=== PATIENT | female | born 1960 | race Caucasian/White ===

== ENCOUNTER 2017-04-13 07:28 | Inpatient (IN) | payer MEDICARE, OTHER ==
--- NOTE | 2017-04-13 07:52 | ED Physician Documentation ---
PD HPI DYSPNEA - Stated complaint Stated Complaint: SOA - Chief complaint Chief Complaint: Resp - History obtained from History obtained from: Patient - History of Present Illness Timing - onset: How many days ago (few) Timing - onset during: Light activity Timing - duration: Days Timing - details: Gradual onset, Still present Inciting event(s): URI (has had some congestion and cough, increased wheezing and cough. Visiting from [place] and uses nebulizer/MDIs at home, oxygen 2 lpm at night. Has portable nebulizer with her that does not work well. Has not had night oxygen with her. Arrived few days ago and will be here 2 weeks. Having diffuse myalgias as well, and usually takes Vicodin 3-4 times daily. Does have those meds with her. No oral steroids usually.). No: Out of meds Improved by: No: Inhaler/neb Worsened by: Exertion, Coughing. No: Laying flat Associated symptoms: Cough, Wheezing. No: Hemoptysis, Chest pain / discomfort, Palpitations, Bilateral edema Similar symptoms before: Diagnosis (COPD/asthma, bronchitis/pneumonia.) Recently seen: Not recently seen Review of Systems Constitutional: reports: Chills, Myalgias. denies: Fever Ears: denies: Drainage/discharge Nose: reports: Congestion. denies: Sinus pressure / pain Throat: denies: Sore throat Cardiac: denies: Chest pain / pressure, Palpitations, Pedal edema, Calf pain Respiratory: reports: Dyspnea, Cough, Wheezing. denies: Hemoptysis GI: reports: Nausea. denies: Abdominal Pain, Vomiting, Diarrhea : denies: Dysuria, Frequency Skin: denies: Rash, Lesions Neurologic: reports: Generalized weakness. 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 Cardiovascular: Coronary stent - Present Medications Home Medications: Ambulatory Orders Medication Instructions Recorded Confirmed Albuterol Sulfate [Proair Hfa 1 puffs INH Q6H 04/13/17 04/13/17 Inhaler] Aspirin Chewable [St Bob 81 mg PO DAILY 04/13/17 04/13/17 Aspirin] Budesonide/Formoterol Fumarate 1 puffs INH BID 04/13/17 04/13/17 [Symbicort 160-4.5 Mcg Inhaler] Gabapentin 800 mg PO TID 04/13/17 04/13/17 Hydroxyzine HCl 50 mg PO Q6H PRN 04/13/17 04/13/17 Losartan Potassium 25 mg PO DAILY 04/13/17 04/13/17 Metoprolol Tartrate 50 mg PO DAILY 04/13/17 04/13/17 Omeprazole 20 mg PO DAILY 04/13/17 04/13/17 Rosuvastatin Calcium [Crestor] 20 mg PO DAILY 04/13/17 04/13/17 - Allergies Allergies/Adverse Reactions: Allergies Allergy/AdvReac Type Severity Reaction Status Date / Time ranitidine Allergy Edema Verified 04/13/17 07:39 - Social History Does the pt smoke?: Yes Smoking Status: Current every day smoker Does the pt drink ETOH?: No Does the pt have substance abuse?: No - Family History Family history: reports: Non contributory. denies: Venous thromboembolism PD ED PE NORMAL - Vitals Vital signs reviewed: Yes - General General: Alert and oriented X 3, No acute distress (some work of breathing, but able to talk in sentences. ), Well developed/nourished - HEENT HEENT: Ears normal, Pharynx benign - Neck Neck: Supple, no meningeal sign, No adenopathy, No JVD - Cardiac Cardiac: RRR, No murmur - Respiratory Respiratory: No: Clear bilaterally (diffuse wheezing and tight resp sounds. ) - Abdomen Abdomen: Soft, Non tender, Non distended - Back Back: No CVA TTP - Derm Derm: Normal color, Warm and dry - Extremities Extremities: No deformity, No tenderness to palpate, Normal ROM s pain, No edema , No calf tenderness / cord - Neuro Neuro: Alert and oriented X 3, No motor deficit, Normal speech - Psych Psych: Normal mood, Normal affect Results - Vitals Vitals: Vital Signs - 24 hr 04/13/17 04/13/17 04/13/17 07:36 08:05 08:15 Temperature 35.7 C L Heart Rate 84 87 80 Respiratory 26 H 20 24 Rate Blood Pressure 113/79 O2 Saturation 84 L 93 04/13/17 04/13/17 04/13/17 08:20 09:20 09:50 Temperature Heart Rate 81 89 83 Respiratory 20 26 H 20 Rate Blood Pressure 104/52 L O2 Saturation 100 04/13/17 04/13/17 04/13/17 10:19 10:22 11:07 Temperature Heart Rate 83 80 80 Respiratory 22 22 22 Rate Blood Pressure 95/62 91/49 L O2 Saturation 92 87 L 87 L 04/13/17 04/13/17 04/13/17 11:17 11:35 11:45 Temperature Heart Rate 73 64 73 Respiratory 20 17 18 Rate Blood Pressure 93/54 L 94/46 L 94/46 L O2 Saturation 91 L 90 L 93 Oxygen O2 Source Nasal cannula Oxygen Flow Rate 2 - Labs Labs: Laboratory Tests 04/13/17 04/13/17 11:22 11:22 WBC 11.5 H RBC 4.75 Hgb 14.4 Hct 42.1 MCV 88.6 MCH 30.2 MCHC 34.1 RDW 13.7 Plt Count 114 L MPV 10.8 Neut # 10.8 H Lymph # 0.5 L Collier # 0.2 Eos # 0.0 Baso # 0.0 Absolute Nucleated RBC 0.00 Nucleated RBCs 0.0 Sodium 136 Potassium 3.7 Chloride 96 L Carbon Dioxide 28 Anion Gap 12.0 BUN 18 Creatinine 1.1 H Estimated GFR (MDRD) 51 L Glucose 117 H Calcium 8.6 Magnesium 1.9 Total Bilirubin 0.5 AST 35 ALT 24 Alkaline Phosphatase 58 Total Protein 7.3 Albumin 3.7 Globulin 3.6 Albumin/Globulin Ratio 1.0 PD MEDICAL DECISION MAKING - ED course Complexity details: reviewed results, re-evaluated patient (improved some with nebs but not well enough. still with some dyspnea, wheezing, and sats to 88% on RA. ), considered differential (She improves with sequential neb treatments but is still having some work of breathing and wheezing, with sats at 88% without oxygen. Presume will need time for steroids (and abx) to have effect so to place in hospital for further treatments. Given history of COPD/asthma, would treat with abx for exacerbation as higher chance of infection too. ), d/w patient Departure - Departure Disposition: [facility] DC/Xfer Clinical Impression: Acute exacerbation of COPD with asthma, Acute dyspnea, Hypoxemia URI (upper respiratory infection) Qualifiers: URI type: unspecified URI Qualified Code(s): J06.9 - Acute upper respiratory infection, unspecified Discharge Date/Time: 04/13/17 12:44
[2017-04-13] MEDS ORDERED: IPRATROPIUM/ALBUTEROL 3 ML NEB INH STA ×2 (08:02→09:29)
[2017-04-13] MEDS ORDERED: DEXAMETHASONE 10 MG/ML VIAL PO STA (08:02)
[2017-04-13] MEDS ORDERED: DOXYCYCLINE 100 MG TABLET PO STA (08:03)
[2017-04-13] MEDS ORDERED: BENZONATATE 100 MG CAPSULE PO STA (08:03)
[2017-04-13] MEDS ORDERED: IPRATROPIUM/ALBUTEROL 3 ML NEB INH ONE ×2 (08:15→09:59)
[2017-04-13] MEDS ORDERED: DEXAMETHASONE 10 MG/ML VIAL ONE (08:20)
[2017-04-13] MEDS: ALBUTEROL NEB 2.5 MG/3 ML INH STA ×2 (08:20→08:25)
[2017-04-13] MEDS ORDERED: DOXYCYCLINE 100 MG TABLET PO ONE (08:20)
[2017-04-13] MEDS ORDERED: BENZONATATE 100 MG CAPSULE PO ONE (08:20)
[2017-04-13] MEDS ORDERED: CHERRY SYRUP 10 ML UDC PO ONE (08:21)
[2017-04-13] MEDS ORDERED: ALBUTEROL NEB 2.5 MG/3 ML INH ONE ×2 (08:24→12:13)
[2017-04-13] MEDS ORDERED: ALBUTEROL NEB 2.5 MG/3 ML INH STA ×2 (08:29→11:59)
[2017-04-13] MEDS ORDERED: ONDANSETRON ODT 4 MG TABLET TL STA (09:01)
[2017-04-13] MEDS ORDERED: HYDROcod/ACETAM 5/325 MG TABLET PO STA (09:01)
[2017-04-13] MEDS ORDERED: HYDROmorphone 1 MG/ML CARPUJECT IM STA (09:29)
[2017-04-13] MEDS ORDERED: HYDROcod/ACETAM 5/325 MG TABLET ONE (09:46)
[2017-04-13] MEDS ORDERED: HYDROmorphone 1 MG/ML CARPUJECT ONE (09:46)
[2017-04-13] MEDS ORDERED: ONDANSETRON ODT 4 MG TABLET ONE (09:46)
--- NOTE | 2017-04-13 10:56 | XRAY Preliminary Report ---
Exam: XR Chest 2 View PA/LAT IMPRESSION: No acute abnormality of the chest. [facility] SITE ID: [id number]
--- NOTE | 2017-04-13 10:58 | XRAY Report ---
EXAM: CHEST RADIOGRAPHY EXAM DATE: 04/13/2017 10:36 AM. CLINICAL HISTORY: Cough and dyspnea. COMPARISON: None. TECHNIQUE: 2 views. FINDINGS: Lungs/Pleura: No acute infiltrate, pleural effusion or pneumothorax. 3 mm lateral left lower hemithor ax nodule is dense and consistent with a calcified granuloma. Mediastinum: Heart and mediastinal contours are unremarkable. Other: None. IMPRESSION: No acute abnormality of the chest. [facility] Referring Provider Line: [phone] SITE ID: [id number]
[2017-04-13] MEDS ORDERED: SODIUM CHLORIDE 0.9% 1,000 ML IV ONE ×2 (11:15→11:27)
[2017-04-13 11:28] LABS: BASOPHILS % (AUTO) 0.3 %; HCT - HEMATOCRIT 42.1 % (37.0-47.0); HGB - HEMOGLOBIN 14.4 g/dL (12.0-16.0); LYMPHOCYTES # (AUTO) 0.5 10^3/uL (1.5-3.5); LYMPHOCYTES % (AUTO) 4.2 %; MEAN CORPUSCULAR HEMOGLOBIN 30.2 pg (27.0-31.0); MEAN CORPUSCULAR HGB CONC 34.1 g/dL (32.0-36.0); MEAN CORPUSCULAR VOLUME 88.6 fL (81.0-99.0); MEAN PLATELET VOLUME 10.8 fL (7.9-10.8); MONOCYTES # (AUTO) 0.2 10^3/uL (0.0-1.0); MONOCYTES % (AUTO) 2.1 %; NEUTROPHILS # (AUTO) 10.8 10^3/uL (1.5-6.6); NEUTROPHILS % (AUTO) 93.4 %; RED BLOOD COUNT 4.75 10^6/uL (4.20-5.40); RED CELL DISTRIBUTION WIDTH 13.7 % (12.0-15.0); UNCORRECTED WHITE BLOOD COUNT 11.5 x10^3/uL; WHITE BLOOD COUNT 11.5 x10^3/uL (4.8-10.8)
[2017-04-13 11:41] LABS: BILIRUBIN,TOTAL 0.5 mg/dL (0.2-1.0); CALCIUM 8.6 mg/dL (8.5-10.3); CREATININE 1.1 mg/dL (0.4-1.0); MAGNESIUM 1.9 mg/dL (1.7-2.8); POTASSIUM 3.7 mmol/L (3.5-5.0); TOTAL PROTEIN 7.3 g/dL (6.7-8.2)
[2017-04-13] MEDS ORDERED: SODIUM CHLORIDE FLUSH 0.9% 10 ML SYRINGE IVP ONE (11:44)
[2017-04-13] MEDS ORDERED: ZOLPIDEM 5 MG TABLET PO PRN (12:02)
[2017-04-13] MEDS ORDERED: ACETAMINOPHEN 325 MG TABLET PO PRN (12:02)
[2017-04-13] MEDS ORDERED: ONDANSETRON 4 MG/2 ML VIAL IVP PRN (12:02)
[2017-04-13] MEDS ORDERED: hydrOXYzine PAMOATE 25 MG CAPSULE PO PRN ×2 (12:13→12:29)
[2017-04-13] MEDS: AZITHROMYCIN 250 MG TABLET PO SCH (12:25)
[2017-04-13] MEDS ORDERED: AZITHROMYCIN 250 MG TABLET PO ONE (12:28)
[2017-04-13] MEDS ORDERED: SODIUM CHLORIDE 0.9% 1,000 ML IV SCH (13:00)
[2017-04-13] MEDS: GABAPENTIN 400 MG CAPSULE PO SCH ×2 (13:12→22:25)
[2017-04-13] MEDS: AMITRIPTYLINE 25 MG TABLET PO SCH (13:12)
[2017-04-13] MEDS: SODIUM CHLORIDE FLUSH 0.9% 10 ML SYRINGE IVP SCH ×2 (13:12→22:25)
[2017-04-13] MEDS: ASPIRIN CHEW 81 MG TABLET PO SCH (13:12)
[2017-04-13] MEDS: FAMOTIDINE 20 MG TABLET PO SCH (13:12)
--- NOTE | 2017-04-13 13:16 | CT Preliminary Report ---
Exam: CT Chest Angio (PE) IMPRESSION: 1. No evidence of pulmonary embolus, aortic aneurysm or aortic dissection. 2. Mild bilateral bronchial thickening which can be seen with bronchitis with several foci of groundg lass airspace opacity, as described, findings which are likely infectious/inflammatory etiology. No a reas of dense consolidation. 3. Mildly prominent although subcentimeter mediastinal and bilateral hilar lymph nodes. 4. Prior granulomatous disease. [facility] SITE ID: [id number]
[2017-04-13] MEDS: methylPREDNISolone SUCCINATE 40 MG/ML VIAL IVP SCH ×2 (14:02→22:25)
--- NOTE | 2017-04-13 14:20 | CT Report ---
EXAM: CT ANGIOGRAM CHEST EXAM DATE: 04/13/2017 12:31 p.m. CLINICAL HISTORY: Shortness of breath, hypotensive, hypoxia. COMPARISON: 04/13/2017. TECHNIQUE: Routine helical imaging was performed through the chest in the pulmonary arterial phase. I V Contrast: 100 mL of Isovue-300. Reconstructions: Coronal 3-D MIP reconstructions.Sagittal and coron al. In accordance with CT protocol optimization, one or more of the following dose reduction techniques w ere utilized for this exam: automated exposure control, adjustment of mA and/or KV based on patient s ize, or use of iterative reconstructive technique. FINDINGS: Pulmonary Arteries: Diagnostic quality: Adequate through the segmental arteries. No evidence for acute or chronic pulmona ry emboli. RV/LV is within normal limits. There is no interventricular septal bowing. There is no reflux of cont rast material in the IVC. Lungs/Pleura: Minimal basilar scar/atelectasis. Left lower lobe and right upper lobe calcified granul omas. No endobronchial obstruction. No pneumothorax. Mild bronchial thickening. No areas of dense con solidation. Small foci of ground-glass opacity is seen in the right middle lobe and lingula, with a s mall component in the right lower lobe. Mild bilateral bronchial dilatation, mucus/fluid is present w ithin peripheral bronchi, in the lower lobes. Mediastinum: Heart size is normal. Trace pericardial effusion. Visualized thyroid gland is unremarkab le. Mediastinal and hilar lymph nodes are seen, the largest right paratracheal lymph node seen measur ing 7.5 mm in short axis dimension with mildly prominent bilateral hilar lymph nodes, the largest on the right measuring 9 mm in short axis dimension. No mediastinal hematoma. Thoracic Aorta: Maximum size of ascending aorta measures 2.9 cm.Calcified and noncalcified plaque is seen in the thoracic aorta and great vessels, particularly the left common carotid artery. No dissect ion. No aneurysm. Upper Abdomen: Included portions of the liver, spleen, adrenals, pancreas, and gallbladder are unrema rkable. Upper pole left renal low-attenuation lesion is seen. 8 mm, indeterminate. Other: Mild degenerative changes of the thoracic spine. No acute osseous abnormalities. IMPRESSION: 1. No evidence of pulmonary embolus, aortic aneurysm or aortic dissection. 2. Mild bilateral bronchial thickening which can be seen with bronchitis with several foci of ground- glass airspace opacity, as described, findings which are likely infectious/inflammatory in etiology. No areas of dense consolidation. 3. Mildly prominent, although subcentimeter mediastinal and bilateral hilar lymph nodes. 4. Prior granulomatous disease. [facility] Referring Provider Line: [phone] SITE ID: [id number]
[2017-04-13] MEDS ORDERED: ALBUTEROL NEB 2.5 MG/3 ML INH SCH ×2 (14:45→18:36)
--- NOTE | 2017-04-13 17:34 | HISTORY & PHYSICAL EXAMINATION ---
Chief Complaint - Chief Complaint Chief Complaint: shortness of breathing History of Present Illness - Admitted From Admitted From:: emergence department - History Obtained From History obtained from: patient - History of Present Illness HPI Comment/Other: This is a 56-year-old Cauc[place] female with a past medical history significant for COPD, current cigarette smoker, HTN, hyperlipidemia, CAD with cardiac stent , PVD, who present emergence department for evaluation of shortness of breath. Patient report she has been on difficult to breath for three days. She had cold , fever at 101 to 102 degree, chill and night sweating at home. patient report she recently traveled from [place] to visit her boyfriend in [facility] for 5 days. She report she currently smokes cigarette 3/4 pack per daily. She used O2 for the night at home. She also report cough with white and slight yellowish sputum. patient report she did not have sleep on last night because of shortness of breathing. Patient denies chest pain, headache, abdominal, nausea, vomiting, abdominal, urinary issue or vision changing. Patient was found hypotensive 91/49 and hypoxia 86% with 3 liter O2 in Emergence department. CTA of chest reveals she did not have PE, bronchitis with infectious etiology, prior granulomatous disease. Lab test reveal slight elevated WBC and creatinine. Pt is admitted for hypoxia secondary to COPD exacerbation. Review of Systems - Constitutional Constitutional: reports: Fever, Chills, Diaphoresis, Night sweats. denies: Fatigue, Weakness, Poor appetite, Weight gain, Weight loss - Eyes Eyes: denies: Pain, Irritation, Amaurosis, Blurred vision, Spots in vision, Field loss, Vision loss, Dipolpia - Ears, Nose & Throat Ears, Nose & Throat: denies: Ear pain, Hearing loss, Hearing aids, Tinnitus, Vertigo, Nosebleeds, Sore throat, Hoarseness, Mouth lesions, Bleeding gums - Cardiovascular Cariovascular: reports: Lightheadedness. denies: Irregular heart rate, Palpitations, Chest pain, Edema, Syncope, Exertional dyspnea - Respiratory Respiratory: reports: Cough, Sputum production, Wheezing, SOB with exertion. denies: Snoring, Hemoptysis, Orthopnea, SOB at rest - Gastrointestinal Gastrointestinal: reports: Diarrhea. denies: Abdominal pain, Abdominal distention, Constipation, Change in bowel habits, Rectal bleeding, Black stools , Bloody stools, Nausea, Vomiting, Saurav blood emesis, Coffee grounds emesis, Reflux/heartburn, Poor appetite - Genitourinary Genitourinary: denies: Dysuria, Frequency, Urgency, Hematuria, Incontinence, Flank pain, Nocturia - Musculoskeletal Musculoskeletal: denies: Muscle pain, Back pain, Muscle aches, Stiffness, Limited range of motion, Muscle weakness, Gout, Joint swelling - Integumentary Integumentary: denies: Rash, Pruritis, Lesions, Dryness, Pigment changes - Neurological Neurological: denies: General weakness, Focal weakness, Headache, Dizziness, Numbness, Memory problems, Pre-existing deficit, Abnormal gait, Seizures, Incoordination, Slurred speech - Psychiatric Psychiatric: denies: Depression, Anxiety, Suicidal, Delusions, Hallucinations, Homicidal - Endocrine Endocrine: denies: Polyuria, Polydypsia, Polyphagia - Hematologic/Lymphatic Hematologic/Lymphatic: denies: Anemia, Bruising, Petechiae, Blood clots, Lymphadenopathy, Bleeding tendencies, Recurrent infections History - Past Medical History Cardiovascular: reports: Hypertension, High cholesterol, Coronary artery disease , Peripheral Vascular Disease Respiratory: reports: COPD MRSA Hx?: No - 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 She had 3 children, one at [facility], two at [place]. Living arrangement: At home Living Situation: With family - Substance History Use: Uses substance without health or social issues: Tobacco Abuse: Recurrent use of substance despite neg consequences: NONE Dependence: Experiences withdrawal or developed tolerances: Tobacco - POLST Patient has POLST: No POLST Status: Full Code Meds/Allgy - Home Medications Home Medications: Ambulatory Orders Medication Instructions Recorded Confirmed Albuterol Sulfate [Proair Hfa 1 puffs INH Q6H 04/13/17 04/13/17 Inhaler] Aspirin Chewable [St Bob 81 mg PO DAILY 04/13/17 04/13/17 Aspirin] Budesonide/Formoterol Fumarate 1 puffs INH BID 04/13/17 04/13/17 [Symbicort 160-4.5 Mcg Inhaler] Gabapentin 800 mg PO TID 04/13/17 04/13/17 Hydroxyzine HCl 50 mg PO Q6H PRN 04/13/17 04/13/17 Losartan Potassium 25 mg PO DAILY 04/13/17 04/13/17 Metoprolol Tartrate 50 mg PO DAILY 04/13/17 04/13/17 Omeprazole 20 mg PO DAILY 04/13/17 04/13/17 Rosuvastatin Calcium [Crestor] 20 mg PO DAILY 04/13/17 04/13/17 - Allergies Allergies/Adverse Reactions: Allergies Allergy/AdvReac Type Severity Reaction Status Date / Time ranitidine Allergy Edema Verified 04/13/17 07:39 Exam - Vital Signs Reviewed Vital Signs: Yes Vital Signs: Vital Signs x48h Temp Pulse Pulse Resp BP BP Pulse Ox 04/13/17 16:29 36.5 C 58 L 17 116/61 96 04/13/17 13:56 36.7 C 77 18 112/63 97 04/13/17 12:30 68 18 04/13/17 12:29 64 20 105/57 L 96 - Physical Exam General Appearance: positive: No acute distress, Alert. negative: Lethargic Eyes Bilateral: positive: Normal inspection, PERRL, EOMI, No lid inflammation, Conjunctivae nml ENT: positive: ENT inspection nml, Pharynx nml, No signs of dehydration. negative: Purulent nasal drainage, Pharyngeal erythema, Oral lesions Neck: positive: Nml inspection, Thyroid nml, No JVD, Trachea midline. negative : Thyromegaly, Lymphadenopathy (R), Lymphadenopathy (L), Stiff neck, Swelling/ bruising, Tracheal deviation Respiratory: positive: Chest non-tender, No respiratory distress, Wheezes ( right lung more intensive wheezes than left lung) Cardiovascular: positive: Regular rate & rhythm, No murmur, No gallop. negative : Tachycardia, Bradycardia, Systolic murmur, Diastolic murmur Peripheral Pulses: positive: 2+ Abdomen: positive: Non-tender, No organomegaly, Nml bowel sounds, No distention. negative: Tenderness, Guarding, Rebound Back: positive: Nml inspection. negative: CVA tenderness (R), CVA tenderness (L ) Skin: positive: Color nml, No rash, Warm, Dry. negative: Cyanosis, Pallor, Skin rash Extremities: positive: Non-tender, Full ROM, Nml appearance. negative: Pedal edema, Calf tenderness, Keith's sign/cords Neurologic/Psychiatric: positive: Oriented x3, Motor nml, Sensation nml, Mood/ affect nml. negative: Weakness, Sensory loss, Facial droop, Slurred/abnml speech, Depressed mood/affect Conclusion/Plan - Problem List (1) Acute exacerbation of COPD with asthma Conclusion/Plan: pt with hx of COPD, current smoker, recent travel. O2 dependence at night solu-medro duoneb, albuterol O2 PRN, RT consult monitor with vital, tele (2) Hypotension Conclusion/Plan: pt is with hx of hypertension, but found pt had lower BP at ER, dehydration may contribute. Pt is no fever in ER, slight elevated WBC. Pt's blood pressure is very response to hydration hold home BP meds now hydration with iVF closely monitor vital and tele (3) Hypoxemia Conclusion/Plan: it appears secondary to COPD exacerbation. Now it 96% SO2 with O2 NS O2 PRN, breathing treatment, Rt consult closely monitor with vital (4) Fever and chills Conclusion/Plan: pt state she had fever/chill, SOB at home. slight elevated WBC, pt may present virus/bacterial bronchitis PO Azithyromycin follow up daily lab test, vital monitor (5) HTN (hypertension) Conclusion/Plan: will resume home meds as needed. pt's BP is stable now after hydration with iVF (6) CAD (coronary artery disease) Conclusion/Plan: history of CAD with cardiac stent. stable, resume home meds, tele monitor, vital monitor (7) DVT prophylaxis Conclusion/Plan: SCD with lovenox - Lab Results Fish Bones: 04/13/17 11:22 04/13/17 11:22 Issues/Core Measures - Anticipated LOS Anticipated Stay Length: 2 or more midnights - DVT/VTE - Prophylaxis VTE/DVT Device ordered at admit?: Yes
[2017-04-13] MEDS: SODIUM CHLORIDE 0.9% 1,000 ML IV SCH (18:33)
[2017-04-13] MEDS: ALBUTEROL NEB 2.5 MG/3 ML INH SCH (19:30)
[2017-04-13] MEDS: guaiFENesin 600 MG TABLET PO PRN (20:29)
[2017-04-13] MEDS: IPRATROPIUM/ALBUTEROL 3 ML NEB INH PRN ×2 (22:55→22:56)
[2017-04-14] MEDS: ALBUTEROL NEB 2.5 MG/3 ML INH SCH ×4 (01:00→19:59)
[2017-04-14] MEDS: SODIUM CHLORIDE 0.9% 1,000 ML IV SCH (02:41)
[2017-04-14] MEDS: IPRATROPIUM/ALBUTEROL 3 ML NEB INH PRN (05:10)
[2017-04-14] MEDS: guaiFENesin 600 MG TABLET PO PRN ×2 (05:15→22:00)
[2017-04-14] MEDS: GABAPENTIN 400 MG CAPSULE PO SCH ×3 (05:15→21:36)
[2017-04-14] MEDS: SODIUM CHLORIDE FLUSH 0.9% 10 ML SYRINGE IVP SCH ×3 (05:16→20:16)
[2017-04-14 05:37] LABS: ALBUMIN/GLOBULIN RATIO 0.9 (1.0-2.2); BILIRUBIN,TOTAL 0.2 mg/dL (0.2-1.0); CALCIUM 8.1 mg/dL (8.5-10.3); POTASSIUM 3.4 mmol/L (3.5-5.0)
[2017-04-14 05:45] LABS: BASOPHILS % (AUTO) 0.2 %; HGB - HEMOGLOBIN 14.7 g/dL (12.0-16.0); LYMPHOCYTES % (AUTO) 10.6 %; MEAN CORPUSCULAR HEMOGLOBIN 30.3 pg (27.0-31.0); MEAN CORPUSCULAR HGB CONC 33.5 g/dL (32.0-36.0); MEAN CORPUSCULAR VOLUME 90.4 fL (81.0-99.0); MEAN PLATELET VOLUME 10.3 fL (7.9-10.8); MONOCYTES # (AUTO) 0.5 10^3/uL (0.0-1.0); NEUTROPHILS # (AUTO) 7.9 10^3/uL (1.5-6.6); NEUTROPHILS % (AUTO) 84.2 %; RED BLOOD COUNT 4.87 10^6/uL (4.20-5.40); RED CELL DISTRIBUTION WIDTH 13.9 % (12.0-15.0); UNCORRECTED WHITE BLOOD COUNT 9.3 x10^3/uL; WHITE BLOOD COUNT 9.3 x10^3/uL (4.8-10.8)
[2017-04-14 06:08] LABS: PLATELET MORPHOLOGY 1+ GIANT PLATELETS (NORMAL)
[2017-04-14 06:09] LABS: PLATELET ESTIMATE, MANUAL DECREASED (<130,000) (NORMAL)
[2017-04-14] MEDS: methylPREDNISolone SUCCINATE 40 MG/ML VIAL IVP SCH ×2 (08:41→20:16)
[2017-04-14] MEDS: ASPIRIN CHEW 81 MG TABLET PO SCH (08:41)
[2017-04-14] MEDS: ENOXAPARIN 40 MG/0.4 ML SYRINGE SUBQ SCH (08:41)
[2017-04-14] MEDS: AZITHROMYCIN 250 MG TABLET PO SCH (08:41)
[2017-04-14] MEDS: AMITRIPTYLINE 25 MG TABLET PO SCH (08:42)
[2017-04-14] MEDS: FAMOTIDINE 20 MG TABLET PO SCH (08:42)
[2017-04-14] MEDS: LOSARTAN 50 MG TABLET PO SCH (08:42)
[2017-04-14] MEDS: POLYETHYLENE GLYCOL 3350 17 GM PACKET PO SCH (08:43)
[2017-04-14] MEDS ORDERED: POTASSIUM CHLORIDE 20 MEQ TABLET PO SCH (09:00)
[2017-04-14] MEDS ORDERED: METOPROLOL SUCCINATE 50 MG TABLET PO SCH (09:00)
[2017-04-14] MEDS ORDERED: METOPROLOL TARTRATE 50 MG TABLET PO SCH (09:00)
[2017-04-14] MEDS: HYDROcod/ACETAM 10 MG/325 MG TABLET PO PRN ×2 (13:54→20:16)
[2017-04-14] MEDS ORDERED: SODIUM CHLORIDE 0.65% NASAL SPRAY NAS PRN (14:07)
[2017-04-14] MEDS: NICOTINE 21 MG PATCH TOP SCH (16:31)
--- NOTE | 2017-04-14 16:54 | PROVIDER PROGRESS NOTE ---
Subjective - Prog Note Date Prog Note Date: 04/14/17 - Subjective Pt reports feeling: Improved, No change Subjective: pt report she feel better but feels some SOB, No chest pain, headache, abdominal pain Current Medications - Current Medications Current Medications: Active Medications Acetaminophen (Tylenol) 650 mg PO Q4HR PRN PRN Reason: Pain 1 to 4 Acetaminophen/Hydrocodone Bitart ([place] 10 Mg/325 Mg) 1 tab PO Q4H PRN PRN Reason: PAIN Last Admin: 04/14/17 13:54 Dose: 1 tab Albuterol () 2.5 mg INH RTQ6H [place] Last Admin: 04/14/17 14:03 Dose: 2.5 mg Albuterol/Ipratropium (Duoneb) 3 ml INH Q4HR PRN PRN Reason: Wheezing Last Admin: 04/14/17 05:10 Dose: 3 ml Amitriptyline HCl (Elavil) 25 mg PO DAILY [facility] Last Admin: 04/14/17 08:42 Dose: 25 mg Aspirin ([place] Aspirin) 81 mg PO DAILY [facility] Last Admin: 04/14/17 08:41 Dose: 81 mg Atorvastatin Calcium (Lipitor) 40 mg PO QPM [facility] Azithromycin (Zithromax) 500 mg PO DAILY [facility] Last Admin: 04/14/17 08:41 Dose: 500 mg Enoxaparin Sodium (Lovenox) 40 mg SUBQ DAILY [facility] Last Admin: 04/14/17 08:41 Dose: 40 mg Famotidine (Pepcid) 20 mg PO DAILY [facility] Last Admin: 04/14/17 08:42 Dose: 20 mg Gabapentin (Neurontin) 800 mg PO TID [facility] Last Admin: 04/14/17 12:31 Dose: 800 mg Guaifenesin (Mucinex) 600 mg PO BID PRN PRN Reason: Cough Last Admin: 04/14/17 05:15 Dose: 600 mg Hydroxyzine Pamoate (Vistaril) 50 mg PO Q6H PRN PRN Reason: ITCHING Losartan Potassium (Cozaar) 25 mg PO DAILY [facility] Last Admin: 04/14/17 08:42 Dose: 25 mg Methylprednisolone (Solu-Medrol (40mg Vial)) 40 mg IVP BID [facility] Last Admin: 04/14/17 08:41 Dose: 40 mg Metoprolol Succinate (Toprol Xl) 50 mg PO DAILY [facility] Nicotine (Nicoderm) 1 patch TOP DAILY [facility] Last Admin: 04/14/17 16:31 Dose: 1 patch Ondansetron HCl (Zofran Inj) 4 mg IVP Q6HR PRN PRN Reason: Nausea / Vomiting Polyethylene Glycol (Miralax) 17 gm PO DAILY [facility] Last Admin: 04/14/17 08:43 Dose: Not Given Sodium Chloride (Normal Saline Flush 0.9%) 10 ml IVP PRN PRN PRN Reason: NEEDED PER PROVIDER ORDERS Sodium Chloride (Normal Saline Flush 0.9%) 10 ml IVP Q8HR [facility] Last Admin: 04/14/17 08:41 Dose: 10 ml Sodium Chloride ([place]) 2 sprays RISA Q4HR PRN PRN Reason: Nasal Congestion Last Admin: 04/14/17 15:08 Dose: 1 spr Zolpidem Tartrate (Ambien) 5 mg PO QPM PRN PRN Reason: Insomnia Albuterol Sulfate [Proair Hfa Inhaler] 1 puffs INH Q6H 04/13/17 Aspirin Chewable [[place] Aspirin] 81 mg PO DAILY 04/13/17 Budesonide/Formoterol Fumarate [Symbicort 160-4.5 Mcg Inhaler] 1 puffs INH BID 04/13/17 Gabapentin 800 mg PO TID 04/13/17 Hydroxyzine HCl 50 mg PO Q6H PRN 04/13/17 Losartan Potassium 25 mg PO DAILY 04/13/17 Omeprazole 20 mg PO DAILY 04/13/17 Rosuvastatin Calcium [Crestor] 20 mg PO DAILY 04/13/17 HYDROcodone/ACET 10/325 [[place] 10 mg/325 mg] 1 each PO Q4-6H PRN 04/14/17 Metoprolol Succinate [Toprol Xl] 50 mg PO DAILY 04/14/17 Objective - Vital Signs/Intake & Output Reviewed Vital Signs: Yes Vital Signs: Vital Signs x48h Temp Pulse Pulse Resp BP Pulse Ox 04/14/17 16:04 36.8 C 97 19 119/66 95 04/14/17 15:21 36.3 C L 63 18 120/63 96 04/14/17 14:03 69 20 04/14/17 12:59 36.4 C L 70 22 139/70 H 93 Intake & Output: Intake & Output 0904/12/17 04/13/17 04/14/17 23:59 23:59 23:59 23:59 Intake Total 2573 1919 Output Total 200 Balance 2573 1719 - Objective General Appearance: positive: No acute distress, Alert. negative: Lethargic Eyes Bilateral: positive: Normal inspection, PERRL, EOMI, No lid inflammation, Conjunctivae nml ENT: positive: ENT inspection nml, Pharynx nml, No signs of dehydration. negative: Purulent nasal drainage, Pharyngeal erythema, Oral lesions Neck: positive: Nml inspection, Thyroid nml, Trachea midline. negative: Thyromegaly, Lymphadenopathy (R), Lymphadenopathy (L), Stiff neck, Swelling/ bruising, Tracheal deviation Respiratory: positive: Chest non-tender, No respiratory distress, Breath sounds nml, Wheezes. negative: Rales, Rhonchi Cardiovascular: positive: Regular rate & rhythm, No murmur, No gallop. negative : Tachycardia, Bradycardia, Systolic murmur, Diastolic murmur Peripheral Pulses: 2+ Radial (R), 2+ Radial (L), 2+ Dorsalis pedis (R), 2+ Dorsalis pedis (L) Abdomen: positive: Non-tender, Nml bowel sounds, No distention. negative: Tenderness, Guarding, Rebound Back: positive: Nml inspection. negative: CVA tenderness (R), CVA tenderness (L ) Skin: positive: Color nml, Warm, Dry. negative: Cyanosis, Pallor Extremities: positive: Non-tender, Full ROM, Nml appearance. negative: Joint swelling, Keith's sign/cords Neurologic/Psychiatric: positive: Oriented x3, Motor nml, Sensation nml, Mood/ affect nml. negative: Sensory loss, Facial droop, Slurred/abnml speech, Depressed mood/affect - Lab Results Fish Bones: 04/14/17 05:06 04/14/17 05:06 Other Labs: Lab Results x24hrs 04/14/17 04/14/17 Range/Units 05:06 05:06 WBC 9.3 (4.8-10.8) x10^3/uL RBC 4.87 (4.20-5.40) 10^6/uL Hgb 14.7 (12.0-16.0) g/dL Hct 44.0 (37.0-47.0) % MCV 90.4 (81.0-99.0) fL MCH 30.3 (27.0-31.0) pg MCHC 33.5 (32.0-36.0) g/dL RDW 13.9 (12.0-15.0) % Plt Count 130 (130-450) 10^3/uL MPV 10.3 (7.9-10.8) fL Neut # 7.9 H (1.5-6.6) 10^3/uL Lymph # 1.0 L (1.5-3.5) 10^3/uL [place] # 0.5 (0.0-1.0) 10^3/uL Eos # 0.0 (0.0-0.7) 10^3/uL Baso # 0.0 (0.0-0.1) 10^3/uL Absolute Nucleated RBC 0.00 x10^3/uL Nucleated RBCs 0.0 /100WBC Platelet Estimate DECREASED (<130,000) (NORMAL) Platelet Morphology 1+ GIANT PLATELETS (NORMAL) Sodium 139 (135-145) mmol/L Potassium 3.4 L (3.5-5.0) mmol/L Chloride 105 (101-111) mmol/L Carbon Dioxide 26 (21-32) mmol/L Anion Gap 8.0 (6-13) BUN 13 (6-20) mg/dL Creatinine 1.0 (0.4-1.0) mg/dL Estimated GFR (MDRD) 57 L (>89) Glucose 132 H (70-100) mg/dL Calcium 8.1 L (8.5-10.3) mg/dL Total Bilirubin 0.2 (0.2-1.0) mg/dL AST 46 H (10-42) IU/L ALT 24 (10-60) IU/L Alkaline Phosphatase 49 (42-121) IU/L Total Protein 7.0 (6.7-8.2) g/dL Albumin 3.3 (3.2-5.5) g/dL Globulin 3.7 (2.1-4.2) g/dL Albumin/Globulin Ratio 0.9 L (1.0-2.2) Assessment/Plan - Problem List (1) Acute exacerbation of COPD with asthma Impression: (1) Acute exacerbation of COPD with asthma Conclusion/Plan: pt feel better, but still feel some SOB, wheezing. the wheezing is better than yesterday. SO2 96% with 2 liter O2, much better than yesterday continue current treatment pt with hx of COPD, current smoker, recent travel. O2 dependence at night solu-medro duoneb, albuterol O2 PRN, RT consult monitor with vital, tele (2) Hypotension Conclusion/Plan: resolved pt is with hx of hypertension, but found pt had lower BP at ER, dehydration may contribute. Pt is no fever in ER, slight elevated WBC. Pt's blood pressure is very response to hydration hold home BP meds now hydration with iVF closely monitor vital and tele (3) Hypoxemia Conclusion/Plan: great improved, SO96% with 2 liter continue the current treatment it appears secondary to COPD exacerbation. Now it 96% SO2 with O2 NS O2 PRN, breathing treatment, Rt consult closely monitor with vital (4) Fever and chills Conclusion/Plan: continue antibiotics PO monitor lab test pt state she had fever/chill, SOB at home. slight elevated WBC, pt may present virus/bacterial bronchitis PO Azithyromycin follow up daily lab test, vital monitor (5) HTN (hypertension) Conclusion/Plan: stable resume of home meds will resume home meds as needed. pt's BP is stable now after hydration with iVF (6) CAD (coronary artery disease) Conclusion/Plan: history of CAD with cardiac stent. stable, resume home meds, tele monitor, vital monitor
[2017-04-14] MEDS: ATORVASTATIN 40 MG TABLET PO SCH (20:16)
[2017-04-15] MEDS: HYDROcod/ACETAM 10 MG/325 MG TABLET PO PRN ×3 (02:30→20:14)
[2017-04-15] MEDS: ALBUTEROL NEB 2.5 MG/3 ML INH SCH ×4 (02:36→18:41)
[2017-04-15] MEDS: IPRATROPIUM/ALBUTEROL 3 ML NEB INH PRN ×3 (02:47→15:08)
[2017-04-15] MEDS: methylPREDNISolone SUCCINATE 40 MG/ML VIAL IVP SCH ×4 (04:00→23:36)
[2017-04-15] MEDS: SODIUM CHLORIDE FLUSH 0.9% 10 ML SYRINGE IVP SCH ×3 (04:01→20:15)
[2017-04-15 06:28] LABS: BASOPHILS % (AUTO) 0.2 %; HCT - HEMATOCRIT 40.7 % (37.0-47.0); HGB - HEMOGLOBIN 13.4 g/dL (12.0-16.0); LYMPHOCYTES % (AUTO) 4.2 %; MEAN CORPUSCULAR HEMOGLOBIN 29.8 pg (27.0-31.0); MEAN CORPUSCULAR HGB CONC 32.9 g/dL (32.0-36.0); MEAN CORPUSCULAR VOLUME 90.7 fL (81.0-99.0); MEAN PLATELET VOLUME 10.8 fL (7.9-10.8); MONOCYTES % (AUTO) 2.1 %; NEUTROPHILS % (AUTO) 93.5 %; RED BLOOD COUNT 4.49 10^6/uL (4.20-5.40); RED CELL DISTRIBUTION WIDTH 13.7 % (12.0-15.0); UNCORRECTED WHITE BLOOD COUNT 15.2 x10^3/uL; WHITE BLOOD COUNT 15.2 x10^3/uL (4.8-10.8)
[2017-04-15] MEDS: GABAPENTIN 400 MG CAPSULE PO SCH ×3 (06:42→21:38)
[2017-04-15 06:44] LABS: BILIRUBIN,TOTAL 0.6 mg/dL (0.2-1.0); CALCIUM 8.6 mg/dL (8.5-10.3); CREATININE 0.9 mg/dL (0.4-1.0); POTASSIUM 5.1 mmol/L (3.5-5.0); TOTAL PROTEIN 6.6 g/dL (6.7-8.2)
[2017-04-15 07:06] LABS: BAND NEUTROPHILS % (MANUAL) 16 %; LYMPHOCYTES % (MANUAL) 8 %; NEUTROPHILS % (MANUAL) 72 %; NP AUTO DIFFERENTIAL? YES; NP MAN DIFFERENTIAL? NO; PLATELET ESTIMATE, MANUAL NORMAL (130-450,000) (NORMAL); TOTAL CELLS COUNTED 100
[2017-04-15] MEDS: LOSARTAN 50 MG TABLET PO SCH (09:53)
[2017-04-15] MEDS: METOPROLOL SUCCINATE 50 MG TABLET PO SCH (09:54)
[2017-04-15] MEDS: AMITRIPTYLINE 25 MG TABLET PO SCH (09:54)
[2017-04-15] MEDS: FAMOTIDINE 20 MG TABLET PO SCH (09:54)
[2017-04-15] MEDS: ASPIRIN CHEW 81 MG TABLET PO SCH (09:54)
[2017-04-15] MEDS: ENOXAPARIN 40 MG/0.4 ML SYRINGE SUBQ SCH (09:54)
[2017-04-15] MEDS: AZITHROMYCIN 250 MG TABLET PO SCH (09:59)
[2017-04-15] MEDS: POLYETHYLENE GLYCOL 3350 17 GM PACKET PO SCH (10:00)
[2017-04-15] MEDS: NICOTINE 21 MG PATCH TOP SCH (10:00)
--- NOTE | 2017-04-15 11:49 | PROVIDER PROGRESS NOTE ---
Subjective - Prog Note Date Prog Note Date: 04/15/17 - Subjective Pt reports feeling: No change Subjective: pt' SO2 99% with O2 3L, but pt is still wheezing. will wane gradually off O2 on the day time if tolerated, then pt can safely fly to [place]. Pt is with O2 on night at home Current Medications - Current Medications Current Medications: Active Medications Acetaminophen (Tylenol) 650 mg PO Q4HR PRN PRN Reason: Pain 1 to 4 Acetaminophen/Hydrocodone Bitart ([place] 10 Mg/325 Mg) 1 tab PO Q4H PRN PRN Reason: PAIN Last Admin: 04/15/17 02:30 Dose: 1 tab Albuterol () 2.5 mg INH RTQ6H [place] Last Admin: 04/15/17 09:54 Dose: Not Given Albuterol/Ipratropium (Duoneb) 3 ml INH Q4HR PRN PRN Reason: Wheezing Last Admin: 04/15/17 07:35 Dose: 3 ml Amitriptyline HCl (Elavil) 25 mg PO DAILY [facility] Last Admin: 04/15/17 09:54 Dose: 25 mg Aspirin ([facility] Bob Aspirin) 81 mg PO DAILY [facility] Last Admin: 04/15/17 09:54 Dose: 81 mg Atorvastatin Calcium (Lipitor) 40 mg PO QPM [facility] Last Admin: 04/14/17 20:16 Dose: 40 mg Azithromycin (Zithromax) 500 mg PO DAILY [facility] Last Admin: 04/15/17 09:59 Dose: 500 mg Enoxaparin Sodium (Lovenox) 40 mg SUBQ DAILY [facility] Last Admin: 04/15/17 09:54 Dose: 40 mg Famotidine (Pepcid) 20 mg PO DAILY [facility] Last Admin: 04/15/17 09:54 Dose: 20 mg Gabapentin (Neurontin) 800 mg PO TID [facility] Last Admin: 04/15/17 06:42 Dose: 800 mg Guaifenesin (Mucinex) 600 mg PO BID PRN PRN Reason: Cough Last Admin: 04/14/17 22:00 Dose: 600 mg Hydroxyzine Pamoate (Vistaril) 50 mg PO Q6H PRN PRN Reason: ITCHING Losartan Potassium (Cozaar) 25 mg PO DAILY [facility] Last Admin: 04/15/17 09:53 Dose: 25 mg Methylprednisolone (Solu-Medrol (40mg Vial)) 80 mg IVP Q6HR [facility] Last Admin: 04/15/17 04:00 Dose: 80 mg Metoprolol Succinate (Toprol Xl) 50 mg PO DAILY [facility] Last Admin: 04/15/17 09:54 Dose: 50 mg Nicotine (Nicoderm) 1 patch TOP DAILY [facility] Last Admin: 04/15/17 10:00 Dose: 1 patch Ondansetron HCl (Zofran Inj) 4 mg IVP Q6HR PRN PRN Reason: Nausea / Vomiting Polyethylene Glycol (Miralax) 17 gm PO DAILY [facility] Last Admin: 04/15/17 10:00 Dose: Not Given Sodium Chloride (Normal Saline Flush 0.9%) 10 ml IVP PRN PRN PRN Reason: NEEDED PER PROVIDER ORDERS Sodium Chloride (Normal Saline Flush 0.9%) 10 ml IVP Q8HR [facility] Last Admin: 04/15/17 04:01 Dose: 10 ml Sodium Chloride ([place]) 2 sprays RISA Q4HR PRN PRN Reason: Nasal Congestion Last Admin: 04/14/17 15:08 Dose: 1 spr Zolpidem Tartrate (Ambien) 5 mg PO QPM PRN PRN Reason: Insomnia Albuterol Sulfate [Proair Hfa Inhaler] 1 puffs INH Q6H 04/13/17 Aspirin Chewable [[place] Aspirin] 81 mg PO DAILY 04/13/17 Budesonide/Formoterol Fumarate [Symbicort 160-4.5 Mcg Inhaler] 1 puffs INH BID 04/13/17 Gabapentin 800 mg PO TID 04/13/17 Hydroxyzine HCl 50 mg PO Q6H PRN 04/13/17 Losartan Potassium 25 mg PO DAILY 04/13/17 Omeprazole 20 mg PO DAILY 04/13/17 Rosuvastatin Calcium [Crestor] 20 mg PO DAILY 04/13/17 HYDROcodone/ACET 10/325 [[place] 10 mg/325 mg] 1 each PO Q4-6H PRN 04/14/17 Metoprolol Succinate [Toprol Xl] 50 mg PO DAILY 04/14/17 Objective - Vital Signs/Intake & Output Vital Signs: Vital Signs x48h Temp Pulse Pulse Resp BP Pulse Ox 04/15/17 07:54 36.5 C 62 17 164/78 H 99 04/15/17 07:35 72 22 Intake & Output: Intake & Output 04/12/17 04/13/17 04/14/17 04/15/17 23:59 23:59 23:59 23:59 Intake Total 2573 9440 700 Output Total 200 Balance 2573 6436 700 - Objective General Appearance: positive: No acute distress, Alert. negative: Lethargic Eyes Bilateral: positive: Normal inspection, PERRL, EOMI, No lid inflammation, Conjunctivae nml ENT: positive: ENT inspection nml, Pharynx nml, No signs of dehydration. negative: Purulent nasal drainage, Pharyngeal erythema, Oral lesions Neck: positive: Nml inspection, Thyroid nml, No JVD, Trachea midline. negative : Thyromegaly, Lymphadenopathy (R), Lymphadenopathy (L), Stiff neck, Swelling/ bruising, Tracheal deviation Respiratory: positive: Chest non-tender, No respiratory distress, Wheezes. negative: Rales, Rhonchi Cardiovascular: positive: Regular rate & rhythm, No murmur, No gallop. negative : Tachycardia, Bradycardia, Systolic murmur, Diastolic murmur Peripheral Pulses: 2+ Radial (R), 2+ Radial (L), 2+ Dorsalis pedis (R), 2+ Dorsalis pedis (L) Abdomen: positive: Non-tender, Nml bowel sounds, No distention. negative: Tenderness, Guarding, Rebound Back: positive: Nml inspection. negative: CVA tenderness (R), CVA tenderness (L ) Skin: positive: Color nml, No rash, Warm. negative: Cyanosis, Pallor Extremities: positive: Non-tender, Full ROM, Nml appearance. negative: Calf tenderness, Keith's sign/cords Neurologic/Psychiatric: positive: Oriented x3, Motor nml, Sensation nml, Mood/ affect nml. negative: Sensory loss, Facial droop, Slurred/abnml speech, Depressed mood/affect - Lab Results Fish Bones: 04/15/17 05:33 04/15/17 05:33 Other Labs: Lab Results x24hrs 04/15/17 04/15/17 Range/Units 05:33 05:33 WBC 15.2 H (4.8-10.8) x10^3/uL RBC 4.49 (4.20-5.40) 10^6/uL Hgb 13.4 (12.0-16.0) g/dL Hct 40.7 (37.0-47.0) % MCV 90.7 (81.0-99.0) fL MCH 29.8 (27.0-31.0) pg MCHC 32.9 (32.0-36.0) g/dL RDW 13.7 (12.0-15.0) % Plt Count 141 (130-450) 10^3/uL MPV 10.8 (7.9-10.8) fL Neut # Not Reportable Lymph # Not Reportable [place] # Not Reportable Eos # Not Reportable Baso # Not Reportable Absolute Nucleated RBC Not Reportable Total Counted 100 Band Neuts % (Manual) 16 H (0 - 10) % Neutrophils # (Manual) 13.4 H (1.5-6.6) 10^3/uL Lymphocytes # (Manual) 1.2 L (1.5-3.5) 10^3/uL Monocytes # (Manual) 0.6 (0.0-1.0) 10^3/uL Nucleated RBCs Not Reportable Differential Comment MANUAL DIFFERENTIAL Platelet Estimate NORMAL (130-450,000) (NORMAL) RBC Morph Micro Appear NORMAL APPEARANCE (NORMAL) Sodium 136 (135-145) mmol/L Potassium 5.1 H (3.5-5.0) mmol/L Chloride 104 (101-111) mmol/L Carbon Dioxide 27 (21-32) mmol/L Anion Gap 5.0 L (6-13) BUN 13 (6-20) mg/dL Creatinine 0.9 (0.4-1.0) mg/dL Estimated GFR (MDRD) 65 L (>89) Glucose 194 H (70-100) mg/dL Calcium 8.6 (8.5-10.3) mg/dL Total Bilirubin 0.6 (0.2-1.0) mg/dL AST 37 (10-42) IU/L ALT 29 (10-60) IU/L Alkaline Phosphatase 47 (42-121) IU/L Total Protein 6.6 L (6.7-8.2) g/dL Albumin 3.3 (3.2-5.5) g/dL Globulin 3.3 (2.1-4.2) g/dL Albumin/Globulin Ratio 1.0 (1.0-2.2) Assessment/Plan - Problem List (1) Acute exacerbation of COPD with asthma Impression: pt is still wheezing, elevated Solu-metro from 40 mg to 80 tid continue RT treatment (2) Hypotension Impression: resolved, resume home BP meds (3) Hypoxemia Impression: will wane off O2 NC on day time, closely monitor SO2 (4) Fever and chills Impression: resolved (5) HTN (hypertension) Impression: stable, resume home meds (6) CAD (coronary artery disease) Impression: stable, continue the current treatment. closely monitor with tele, vital
[2017-04-15] MEDS: BUDESONIDE 0.5 MG/2 ML NEB INH SCH (18:41)
[2017-04-15] MEDS: ATORVASTATIN 40 MG TABLET PO SCH (20:14)
[2017-04-15] MEDS: guaiFENesin 600 MG TABLET PO PRN (20:14)
[2017-04-15] MEDS: SODIUM CHLORIDE FLUSH 0.9% 10 ML SYRINGE IVP PRN (23:36)
[2017-04-16] MEDS: ALBUTEROL NEB 2.5 MG/3 ML INH SCH ×4 (01:07→21:52)
[2017-04-16] MEDS: guaiFENesin 600 MG TABLET PO PRN ×2 (04:37→22:39)
[2017-04-16] MEDS: GABAPENTIN 400 MG CAPSULE PO SCH ×3 (06:07→22:20)
[2017-04-16] MEDS: HYDROcod/ACETAM 10 MG/325 MG TABLET PO PRN ×2 (06:09→22:41)
[2017-04-16] MEDS: SODIUM CHLORIDE FLUSH 0.9% 10 ML SYRINGE IVP SCH ×3 (06:09→22:20)
[2017-04-16 06:21] LABS: BILIRUBIN,TOTAL 0.6 mg/dL (0.2-1.0); CALCIUM 8.9 mg/dL (8.5-10.3); CREATININE 0.7 mg/dL (0.4-1.0); POTASSIUM 4.5 mmol/L (3.5-5.0); TOTAL PROTEIN 7.5 g/dL (6.7-8.2)
[2017-04-16 06:22] LABS: BASOPHILS % (AUTO) 0.1 %; HCT - HEMATOCRIT 43.6 % (37.0-47.0); HGB - HEMOGLOBIN 14.3 g/dL (12.0-16.0); LYMPHOCYTES % (AUTO) 5.9 %; MEAN CORPUSCULAR HEMOGLOBIN 29.9 pg (27.0-31.0); MEAN CORPUSCULAR HGB CONC 32.9 g/dL (32.0-36.0); MEAN CORPUSCULAR VOLUME 90.8 fL (81.0-99.0); MEAN PLATELET VOLUME 11.2 fL (7.9-10.8); MONOCYTES % (AUTO) 3.6 %; NEUTROPHILS % (AUTO) 90.4 %; RED CELL DISTRIBUTION WIDTH 13.8 % (12.0-15.0); UNCORRECTED WHITE BLOOD COUNT 13.4 x10^3/uL; WHITE BLOOD COUNT 13.4 x10^3/uL (4.8-10.8)
[2017-04-16 07:02] LABS: BAND NEUTROPHILS % (MANUAL) 9 %; LYMPHOCYTES % (MANUAL) 7 %; NEUTROPHILS % (MANUAL) 84 %; NP AUTO DIFFERENTIAL? YES; NP MAN DIFFERENTIAL? NO; PLATELET ESTIMATE, MANUAL NORMAL (130-450,000) (NORMAL); TOTAL CELLS COUNTED 100
[2017-04-16] MEDS: methylPREDNISolone SUCCINATE 40 MG/ML VIAL IVP SCH ×3 (07:25→19:35)
[2017-04-16] MEDS: BUDESONIDE 0.5 MG/2 ML NEB INH SCH ×2 (07:27→18:28)
[2017-04-16] MEDS: METOPROLOL SUCCINATE 50 MG TABLET PO SCH (08:57)
[2017-04-16] MEDS: AZITHROMYCIN 250 MG TABLET PO SCH (08:57)
[2017-04-16] MEDS: ASPIRIN CHEW 81 MG TABLET PO SCH (08:57)
[2017-04-16] MEDS: ENOXAPARIN 40 MG/0.4 ML SYRINGE SUBQ SCH (08:57)
[2017-04-16] MEDS: FAMOTIDINE 20 MG TABLET PO SCH (08:57)
[2017-04-16] MEDS: AMITRIPTYLINE 25 MG TABLET PO SCH (08:57)
[2017-04-16] MEDS: LOSARTAN 50 MG TABLET PO SCH (08:57)
[2017-04-16] MEDS: NICOTINE 21 MG PATCH TOP SCH (08:58)
[2017-04-16] MEDS: POLYETHYLENE GLYCOL 3350 17 GM PACKET PO SCH (08:58)
--- NOTE | 2017-04-16 11:43 | PROVIDER PROGRESS NOTE ---
Subjective - Prog Note Date Prog Note Date: 04/16/17 - Subjective Pt reports feeling: Improved Subjective: pt report she feel much better, wheezing is much better. No chest pain, fever, chill, headache, abdominal pain reported Current Medications - Current Medications Current Medications: Active Medications Acetaminophen (Tylenol) 650 mg PO Q4HR PRN PRN Reason: Pain 1 to 4 Acetaminophen/Hydrocodone Bitart ([place] 10 Mg/325 Mg) 1 tab PO Q4H PRN PRN Reason: PAIN Last Admin: 04/16/17 06:09 Dose: 1 tab Albuterol () 2.5 mg INH RTQ6H [place] Last Admin: 04/16/17 07:27 Dose: 2.5 mg Albuterol/Ipratropium (Duoneb) 3 ml INH Q2HR PRN PRN Reason: Wheezing Last Admin: 04/15/17 15:08 Dose: 3 ml Amitriptyline HCl (Elavil) 25 mg PO DAILY [facility] Last Admin: 04/16/17 08:57 Dose: 25 mg Aspirin ([place] Aspirin) 81 mg PO DAILY [facility] Last Admin: 04/16/17 08:57 Dose: 81 mg Atorvastatin Calcium (Lipitor) 40 mg PO QPM [facility] Last Admin: 04/15/17 20:14 Dose: 40 mg Azithromycin (Zithromax) 500 mg PO DAILY [facility] Last Admin: 04/16/17 08:57 Dose: 500 mg Budesonide (Pulmicort) 0.5 mg INH RTBID [facility] Last Admin: 04/16/17 07:27 Dose: 0.5 mg Clonidine HCl ([place]) 0.1 mg PO Q12H PRN PRN Reason: Hypertensive Emergency Enoxaparin Sodium (Lovenox) 40 mg SUBQ DAILY [facility] Last Admin: 04/16/17 08:57 Dose: 40 mg Famotidine (Pepcid) 20 mg PO DAILY [facility] Last Admin: 04/16/17 08:57 Dose: 20 mg Gabapentin (Neurontin) 800 mg PO TID [facility] Last Admin: 04/16/17 06:07 Dose: 800 mg Guaifenesin (Mucinex) 600 mg PO BID PRN PRN Reason: Cough Last Admin: 04/16/17 04:37 Dose: 600 mg Hydroxyzine Pamoate (Vistaril) 50 mg PO Q6H PRN PRN Reason: ITCHING Losartan Potassium (Cozaar) 25 mg PO DAILY [facility] Last Admin: 04/16/17 08:57 Dose: 25 mg Methylprednisolone (Solu-Medrol (40mg Vial)) 80 mg IVP Q6HR [facility] Last Admin: 04/16/17 07:25 Dose: 80 mg Metoprolol Succinate (Toprol Xl) 50 mg PO DAILY [facility] Last Admin: 04/16/17 08:57 Dose: 50 mg Nicotine (Nicoderm) 1 patch TOP DAILY [facility] Last Admin: 04/16/17 08:58 Dose: 1 patch Ondansetron HCl (Zofran Inj) 4 mg IVP Q6HR PRN PRN Reason: Nausea / Vomiting Polyethylene Glycol (Miralax) 17 gm PO DAILY [facility] Last Admin: 04/16/17 08:58 Dose: 17 gm Sodium Chloride (Normal Saline Flush 0.9%) 10 ml IVP PRN PRN PRN Reason: NEEDED PER PROVIDER ORDERS Last Admin: 04/15/17 23:36 Dose: 10 ml Sodium Chloride (Normal Saline Flush 0.9%) 10 ml IVP Q8HR [facility] Last Admin: 04/16/17 06:09 Dose: 10 ml Sodium Chloride ([place]) 2 sprays RISA Q4HR PRN PRN Reason: Nasal Congestion Last Admin: 04/14/17 15:08 Dose: 1 spr Zolpidem Tartrate (Ambien) 5 mg PO QPM PRN PRN Reason: Insomnia Albuterol Sulfate [Proair Hfa Inhaler] 1 puffs INH Q6H 04/13/17 Aspirin Chewable [[place] Aspirin] 81 mg PO DAILY 04/13/17 Budesonide/Formoterol Fumarate [Symbicort 160-4.5 Mcg Inhaler] 1 puffs INH BID 04/13/17 Gabapentin 800 mg PO TID 04/13/17 Hydroxyzine HCl 50 mg PO Q6H PRN 04/13/17 Losartan Potassium 25 mg PO DAILY 04/13/17 Omeprazole 20 mg PO DAILY 04/13/17 Rosuvastatin Calcium [Crestor] 20 mg PO DAILY 04/13/17 HYDROcodone/ACET 10/325 [[place] 10 mg/325 mg] 1 each PO Q4-6H PRN 04/14/17 Metoprolol Succinate [Toprol Xl] 50 mg PO DAILY 04/14/17 Objective - Vital Signs/Intake & Output Reviewed Vital Signs: Yes Vital Signs: Vital Signs x48h Temp Pulse Pulse Resp BP BP Pulse Ox 04/16/17 08:56 173/81 H 04/16/17 08:45 36.9 C 66 18 175/104 H 95 04/16/17 07:27 63 24 04/16/17 05:00 36.7 C 69 20 116/75 94 Intake & Output: Intake & Output 04/13/17 04/14/17 04/15/17 04/16/17 23:59 23:59 23:59 23:59 Intake Total 2573 2889 1220 660 Output Total 200 Balance 2573 2689 1220 660 - Objective General Appearance: positive: No acute distress, Alert. negative: Lethargic Eyes Bilateral: positive: Normal inspection, PERRL, EOMI, No lid inflammation, Conjunctivae nml ENT: positive: ENT inspection nml, Pharynx nml, No signs of dehydration. negative: Purulent nasal drainage, Pharyngeal erythema, Oral lesions Neck: positive: Nml inspection, Thyroid nml, Trachea midline. negative: Thyromegaly, Lymphadenopathy (R), Lymphadenopathy (L), Stiff neck, Swelling/ bruising, Tracheal deviation Respiratory: positive: Chest non-tender, No respiratory distress, Wheezes, Other (mild wheezes at bilateral lung). negative: Rales, Rhonchi Cardiovascular: positive: Regular rate & rhythm, No murmur, No gallop. negative : Tachycardia, Bradycardia, Systolic murmur, Diastolic murmur Peripheral Pulses: 2+ Radial (R), 2+ Radial (L), 2+ Dorsalis pedis (R), 2+ Dorsalis pedis (L) Abdomen: positive: Non-tender, Nml bowel sounds, No distention. negative: Tenderness, Guarding, Rebound Back: positive: Nml inspection. negative: CVA tenderness (R), CVA tenderness (L ) Skin: positive: Color nml, No rash, Warm. negative: Cyanosis, Pallor, Skin rash Extremities: positive: Non-tender, Full ROM, Nml appearance. negative: Pedal edema, Calf tenderness, Keith's sign/cords Neurologic/Psychiatric: positive: Oriented x3, Motor nml, Sensation nml, Mood/ affect nml. negative: Sensory loss, Facial droop, Slurred/abnml speech, Depressed mood/affect - Lab Results Fish Bones: 04/16/17 05:25 04/16/17 05:25 Other Labs: Lab Results x24hrs 04/16/17 04/16/17 Range/Units 05:25 05:25 WBC 13.4 H (4.8-10.8) x10^3/uL RBC 4.80 (4.20-5.40) 10^6/uL Hgb 14.3 (12.0-16.0) g/dL Hct 43.6 (37.0-47.0) % MCV 90.8 (81.0-99.0) fL MCH 29.9 (27.0-31.0) pg MCHC 32.9 (32.0-36.0) g/dL RDW 13.8 (12.0-15.0) % Plt Count 164 (130-450) 10^3/uL MPV 11.2 H (7.9-10.8) fL Neut # Not Reportable Lymph # Not Reportable [place] # Not Reportable Eos # Not Reportable Baso # Not Reportable Absolute Nucleated RBC Not Reportable Total Counted 100 Band Neuts % (Manual) 9 (0 - 10) % Neutrophils # (Manual) 12.5 H (1.5-6.6) 10^3/uL Lymphocytes # (Manual) 0.9 L (1.5-3.5) 10^3/uL Nucleated RBCs Not Reportable Differential Comment MANUAL DIFFERENTIAL Platelet Estimate NORMAL (130-450,000) (NORMAL) RBC Morph Micro Appear NORMAL APPEARANCE (NORMAL) Sodium 138 (135-145) mmol/L Potassium 4.5 (3.5-5.0) mmol/L Chloride 100 L (101-111) mmol/L Carbon Dioxide 29 (21-32) mmol/L Anion Gap 9.0 (6-13) BUN 12 (6-20) mg/dL Creatinine 0.7 (0.4-1.0) mg/dL Estimated GFR (MDRD) 86 L (>89) Glucose 120 H (70-100) mg/dL Calcium 8.9 (8.5-10.3) mg/dL Total Bilirubin 0.6 (0.2-1.0) mg/dL AST 31 (10-42) IU/L ALT 33 (10-60) IU/L Alkaline Phosphatase 56 (42-121) IU/L Total Protein 7.5 (6.7-8.2) g/dL Albumin 3.7 (3.2-5.5) g/dL Globulin 3.8 (2.1-4.2) g/dL Albumin/Globulin Ratio 1.0 (1.0-2.2) Assessment/Plan - Problem List (1) Acute exacerbation of COPD with asthma Impression: (1) Acute exacerbation of COPD with asthma Impression: pt feel better, the wheezing is great improved. SO2 92% at room air on rest, feel SOB on exertion. continue steroid continue breathing treatment with RT pt is still wheezing, elevated Solu-metro from 40 mg to 80 tid continue RT treatment (2)pneumonia CTA indicate infection etiology in her lung Azithyromicn rocephin (3) Hypoxemia Impression: today NC 3 liter 95% will wane off O2 NC on day time, closely monitor SO2 (4) Fever and chills Impression: no fever at hospital course (5) HTN (hypertension) Impression: stable, resume home meds (6) CAD (coronary artery disease) Impression: stable, continue the current treatment. closely monitor with tele, vital
[2017-04-16] MEDS: IPRATROPIUM/ALBUTEROL 3 ML NEB INH PRN ×2 (12:58→18:28)
[2017-04-16] MEDS ORDERED: cefTRIAXone 1 GM VIAL IVP SCH (13:00)
[2017-04-16] MEDS: cefTRIAXone 1 GM in SODIUM CHLORIDE 0.9% MINIBAG 100 ML IV SCH (13:47)
[2017-04-16] MEDS: cloNIDine 0.1 MG TABLET PO PRN (13:47)
--- NOTE | 2017-04-16 13:50 | XRAY Preliminary Report ---
Exam: XR Chest 1 View IMPRESSION: Pulmonary cephalization with new bilateral interstitial opacities suggestive of pulmonary edema. [facility] SITE ID: [id number]
--- NOTE | 2017-04-16 13:52 | XRAY Report ---
EXAM: CHEST RADIOGRAPHY EXAM DATE: 04/16/2017 01:36 PM. CLINICAL HISTORY: Shortness of breath. COMPARISON: Chest x-ray 04/13/2017. TECHNIQUE: 1 view. FINDINGS: Lungs/Pleura: No pleural effusion or pneumothorax. Pulmonary cephalization with mild bilateral inters titial opacities. Mediastinum: Within exam limitations, cardiomediastinal contour is normal. Other: None. IMPRESSION: Pulmonary cephalization with new bilateral interstitial opacities suggestive of pulmonary edema. [facility] Referring Provider Line: [phone] SITE ID: [id number]
[2017-04-16] MEDS: SODIUM CHLORIDE FLUSH 0.9% 10 ML SYRINGE IVP PRN (14:30)
[2017-04-16] MEDS ORDERED: FUROSEMIDE 40 MG/4 ML VIAL IVP SCH ×2 (18:00)
[2017-04-16] MEDS: ATORVASTATIN 40 MG TABLET PO SCH (22:24)
[2017-04-17] MEDS: methylPREDNISolone SUCCINATE 40 MG/ML VIAL IVP SCH ×4 (00:14→18:18)
[2017-04-17] MEDS: cloNIDine 0.1 MG TABLET PO PRN (00:14)
[2017-04-17 05:57] LABS: BILIRUBIN,TOTAL 0.5 mg/dL (0.2-1.0); BUN - BLOOD UREA NITROGEN 15 mg/dL (6-20); CALCIUM 8.7 mg/dL (8.5-10.3); CARBON DIOXIDE - CO2 37 mmol/L (21-32); CHLORIDE 93 mmol/L (101-111); CREATININE 0.5 mg/dL (0.4-1.0); GFR - MDRD 127 (>89); GLUCOSE 137 mg/dL (70-100); SODIUM 140 mmol/L (135-145); TOTAL PROTEIN 6.9 g/dL (6.7-8.2)
[2017-04-17 05:58] LABS: BASOPHILS % (AUTO) 0.4 %; HCT - HEMATOCRIT 43.6 % (37.0-47.0); HGB - HEMOGLOBIN 14.9 g/dL (12.0-16.0); LYMPHOCYTES # (AUTO) 0.9 10^3/uL (1.5-3.5); LYMPHOCYTES % (AUTO) 8.2 %; MEAN CORPUSCULAR HEMOGLOBIN 30.3 pg (27.0-31.0); MEAN CORPUSCULAR HGB CONC 34.2 g/dL (32.0-36.0); MEAN CORPUSCULAR VOLUME 88.6 fL (81.0-99.0); MEAN PLATELET VOLUME 10.5 fL (7.9-10.8); MONOCYTES # (AUTO) 0.6 10^3/uL (0.0-1.0); MONOCYTES % (AUTO) 5.9 %; NEUTROPHILS # (AUTO) 9.2 10^3/uL (1.5-6.6); NEUTROPHILS % (AUTO) 85.5 %; NUCLEATED RED BLOOD CELLS AUTO 0.1 /100WBC; RED BLOOD COUNT 4.92 10^6/uL (4.20-5.40); RED CELL DISTRIBUTION WIDTH 13.5 % (12.0-15.0); UNCORRECTED WHITE BLOOD COUNT 10.7 x10^3/uL; WHITE BLOOD COUNT 10.7 x10^3/uL (4.8-10.8)
[2017-04-17 06:27] LABS: PLATELET ESTIMATE, MANUAL NORMAL (130-450,000) (NORMAL); PLATELET MORPHOLOGY NORMAL APPEARANCE (NORMAL)
[2017-04-17] MEDS: SODIUM CHLORIDE FLUSH 0.9% 10 ML SYRINGE IVP SCH ×3 (06:31→18:18)
[2017-04-17] MEDS: GABAPENTIN 400 MG CAPSULE PO SCH ×3 (06:31→22:12)
[2017-04-17] MEDS: ALBUTEROL NEB 2.5 MG/3 ML INH SCH ×4 (07:30→20:55)
[2017-04-17] MEDS: BUDESONIDE 0.5 MG/2 ML NEB INH SCH ×2 (07:30→20:55)
[2017-04-17] MEDS ORDERED: FUROSEMIDE 40 MG/4 ML VIAL IVP SCH (09:00)
[2017-04-17] MEDS: METOPROLOL SUCCINATE 50 MG TABLET PO SCH (09:11)
[2017-04-17] MEDS: LOSARTAN 50 MG TABLET PO SCH (09:11)
[2017-04-17] MEDS: FAMOTIDINE 20 MG TABLET PO SCH (09:11)
[2017-04-17] MEDS: AMITRIPTYLINE 25 MG TABLET PO SCH (09:11)
[2017-04-17] MEDS: ASPIRIN CHEW 81 MG TABLET PO SCH (09:11)
[2017-04-17] MEDS: cefTRIAXone 1 GM in SODIUM CHLORIDE 0.9% MINIBAG 100 ML IV SCH (09:12)
[2017-04-17] MEDS: ENOXAPARIN 40 MG/0.4 ML SYRINGE SUBQ SCH (09:18)
[2017-04-17] MEDS: NICOTINE 21 MG PATCH TOP SCH (09:18)
[2017-04-17] MEDS: AZITHROMYCIN 250 MG TABLET PO SCH (09:27)
[2017-04-17] MEDS: POLYETHYLENE GLYCOL 3350 17 GM PACKET PO SCH (09:28)
[2017-04-17] MEDS: SODIUM CHLORIDE FLUSH 0.9% 10 ML SYRINGE IVP PRN ×3 (09:53→18:18)
[2017-04-17] MEDS: FUROSEMIDE 40 MG/4 ML VIAL IVP SCH (12:35)
--- NOTE | 2017-04-17 14:19 | PROVIDER PROGRESS NOTE ---
Subjective - Prog Note Date Prog Note Date: 04/17/17 - Subjective Pt reports feeling: Improved Subjective: pt feels much better, she state she is ready to d/c. because of her lower SO2, SO2 study recommend she need portable O2 supply. 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 Pt reject the option: pt first pay by her credit card, then reimbursement by her insurance. Current Medications - Current Medications Current Medications: Active Medications Acetaminophen (Tylenol) 650 mg PO Q4HR PRN PRN Reason: Pain 1 to 4 Acetaminophen/Hydrocodone Bitart ([place] 10 Mg/325 Mg) 1 tab PO Q4H PRN PRN Reason: PAIN Last Admin: 04/16/17 22:41 Dose: 1 tab Albuterol () 2.5 mg INH RTQID [facility] Last Admin: 04/17/17 12:15 Dose: 2.5 mg Albuterol/Ipratropium (Duoneb) 3 ml INH Q2HR PRN PRN Reason: Wheezing Last Admin: 04/16/17 18:28 Dose: 3 ml Amitriptyline HCl (Elavil) 25 mg PO DAILY [facility] Last Admin: 04/17/17 09:11 Dose: 25 mg Aspirin ([place] Bob Aspirin) 81 mg PO DAILY [facility] Last Admin: 04/17/17 09:11 Dose: 81 mg Atorvastatin Calcium (Lipitor) 40 mg PO QPM [facility] Last Admin: 04/16/17 22:24 Dose: 40 mg Azithromycin (Zithromax) 500 mg PO DAILY [facility] Last Admin: 04/17/17 09:27 Dose: 500 mg Budesonide (Pulmicort) 0.5 mg INH RTBID [facility] Last Admin: 04/17/17 07:30 Dose: 0.5 mg Clonidine HCl (Catapres) 0.1 mg PO Q12H PRN PRN Reason: Hypertensive Emergency Last Admin: 04/17/17 00:14 Dose: 0.1 mg Enoxaparin Sodium (Lovenox) 40 mg SUBQ DAILY [facility] Last Admin: 04/17/17 09:18 Dose: 40 mg Famotidine (Pepcid) 20 mg PO DAILY [facility] Last Admin: 04/17/17 09:11 Dose: 20 mg Furosemide (Lasix Inj 40 Mg Vial) 40 mg IVP DAILY [facility] Last Admin: 04/17/17 12:35 Dose: 40 mg Gabapentin (Neurontin) 800 mg PO TID [facility] Last Admin: 04/17/17 14:04 Dose: 800 mg Guaifenesin (Mucinex) 600 mg PO BID PRN PRN Reason: Cough Last Admin: 04/16/17 22:39 Dose: 600 mg Hydroxyzine Pamoate (Vistaril) 50 mg PO Q6H PRN PRN Reason: ITCHING Ceftriaxone Sodium 1 gm/ (Sodium Chloride) 100 mls @ 200 mls/hr IV DAILY [facility] Last Admin: 04/17/17 09:12 Dose: 200 mls/hr Losartan Potassium (Cozaar) 25 mg PO DAILY [facility] Last Admin: 04/17/17 09:11 Dose: 25 mg Methylprednisolone (Solu-Medrol (40mg Vial)) 80 mg IVP Q6HR [facility] Last Admin: 04/17/17 12:34 Dose: 80 mg Metoprolol Succinate (Toprol Xl) 50 mg PO DAILY [facility] Last Admin: 04/17/17 09:11 Dose: 50 mg Nicotine (Nicoderm) 1 patch TOP DAILY [facility] Last Admin: 04/17/17 09:18 Dose: 1 patch Ondansetron HCl (Zofran Inj) 4 mg IVP Q6HR PRN PRN Reason: Nausea / Vomiting Polyethylene Glycol (Miralax) 17 gm PO DAILY [facility] Last Admin: 04/17/17 09:28 Dose: 17 gm Sodium Chloride (Normal Saline Flush 0.9%) 10 ml IVP PRN PRN PRN Reason: NEEDED PER PROVIDER ORDERS Last Admin: 04/17/17 12:35 Dose: 30 ml Sodium Chloride (Normal Saline Flush 0.9%) 10 ml IVP Q8HR [facility] Last Admin: 04/17/17 09:16 Dose: 20 ml Sodium Chloride ([place]) 2 sprays RISA Q4HR PRN PRN Reason: Nasal Congestion Last Admin: 04/14/17 15:08 Dose: 1 spr Zolpidem Tartrate (Ambien) 5 mg PO QPM PRN PRN Reason: Insomnia Albuterol Sulfate [Proair Hfa Inhaler] 1 puffs INH Q6H 04/13/17 Aspirin Chewable [[place] Bob Aspirin] 81 mg PO DAILY 04/13/17 Budesonide/Formoterol Fumarate [Symbicort 160-4.5 Mcg Inhaler] 1 puffs INH BID 04/13/17 Gabapentin 800 mg PO TID 04/13/17 Hydroxyzine HCl 50 mg PO Q6H PRN 04/13/17 Losartan Potassium 25 mg PO DAILY 04/13/17 Omeprazole 20 mg PO DAILY 04/13/17 Rosuvastatin Calcium [Crestor] 20 mg PO DAILY 04/13/17 HYDROcodone/ACET 10/325 [[place] 10 mg/325 mg] 1 each PO Q4-6H PRN 04/14/17 Metoprolol Succinate [Toprol Xl] 50 mg PO DAILY 04/14/17 Objective - Vital Signs/Intake & Output Reviewed Vital Signs: Yes Vital Signs: Vital Signs x48h Temp Pulse Pulse Resp BP Pulse Ox 04/17/17 12:15 71 18 04/17/17 08:33 36.6 C 76 20 124/58 L 92 04/17/17 07:30 72 20 Intake & Output: Intake & Output 04/14/17 04/15/17 04/16/17 04/17/17 23:59 23:59 23:59 23:59 Intake Total 2889 1220 1520 580 Output Total 200 Balance 2689 1220 1520 580 - Objective General Appearance: positive: No acute distress, Alert. negative: Lethargic Eyes Bilateral: positive: Normal inspection, PERRL, No lid inflammation, Conjunctivae nml ENT: positive: ENT inspection nml, Pharynx nml, No signs of dehydration, Oral lesions. negative: Purulent nasal drainage, Pharyngeal erythema Neck: positive: Nml inspection, Thyroid nml, Trachea midline. negative: Thyromegaly, Lymphadenopathy (R), Lymphadenopathy (L), Stiff neck, Swelling/ bruising, Tracheal deviation Respiratory: positive: Chest non-tender, No respiratory distress, Breath sounds nml, Rhonchi (mild at bilateral lower lobe). negative: Wheezes, Rales Cardiovascular: positive: Regular rate & rhythm, No murmur, No gallop. negative : Tachycardia, Bradycardia, Systolic murmur, Diastolic murmur Peripheral Pulses: 2+ Radial (R), 2+ Radial (L), 2+ Dorsalis pedis (R), 2+ Dorsalis pedis (L) Abdomen: positive: Non-tender, Nml bowel sounds, No distention. negative: Tenderness, Guarding, Rebound Back: positive: Nml inspection. negative: CVA tenderness (R), CVA tenderness (L ) Skin: positive: Color nml, Warm, Dry. negative: Cyanosis, Pallor, Skin rash Extremities: positive: Non-tender, Full ROM, Nml appearance. negative: Calf tenderness, Keith's sign/cords Neurologic/Psychiatric: positive: Oriented x3, Motor nml, Sensation nml, Mood/ affect nml. negative: Sensory loss, Facial droop, Slurred/abnml speech, Depressed mood/affect - Lab Results Fish Bones: 04/17/17 05:01 04/17/17 05:01 Other Labs: Lab Results x24hrs 04/17/17 04/17/17 04/17/17 Range/Units 05:01 05:01 05:01 WBC 10.7 (4.8-10.8) x10^3/uL RBC 4.92 (4.20-5.40) 10^6/uL Hgb 14.9 (12.0-16.0) g/dL Hct 43.6 (37.0-47.0) % MCV 88.6 (81.0-99.0) fL MCH 30.3 (27.0-31.0) pg MCHC 34.2 (32.0-36.0) g/dL RDW 13.5 (12.0-15.0) % Plt Count 165 (130-450) 10^3/uL MPV 10.5 (7.9-10.8) fL Neut # 9.2 H (1.5-6.6) 10^3/uL Lymph # 0.9 L (1.5-3.5) 10^3/uL Hyde # 0.6 (0.0-1.0) 10^3/uL Eos # 0.0 (0.0-0.7) 10^3/uL Baso # 0.0 (0.0-0.1) 10^3/uL Absolute Nucleated RBC 0.01 x10^3/uL Nucleated RBCs 0.1 /100WBC Manual Slide Review Indicated Platelet Estimate NORMAL (130-450,000) (NORMAL) Platelet Morphology NORMAL APPEARANCE (NORMAL) RBC Morph Micro Appear NORMAL APPEARANCE (NORMAL) ESR 19 (0-30) mm/Hr Sodium 140 (135-145) mmol/L Potassium 4.0 (3.5-5.0) mmol/L Chloride 93 L (101-111) mmol/L Carbon Dioxide 37 H (21-32) mmol/L Anion Gap 10.0 (6-13) BUN 15 (6-20) mg/dL Creatinine 0.5 (0.4-1.0) mg/dL Estimated GFR (MDRD) 127 (>89) Glucose 137 H (70-100) mg/dL Calcium 8.7 (8.5-10.3) mg/dL Total Bilirubin 0.5 (0.2-1.0) mg/dL AST 28 (10-42) IU/L ALT 32 (10-60) IU/L Alkaline Phosphatase 51 (42-121) IU/L C-Reactive Protein < 1.0 (0-1.0) mg/dL Total Protein 6.9 (6.7-8.2) g/dL Albumin 3.4 (3.2-5.5) g/dL Globulin 3.5 (2.1-4.2) g/dL Albumin/Globulin Ratio 1.0 (1.0-2.2) Assessment/Plan - Problem List (1) Acute exacerbation of COPD with asthma Impression: (1) Acute exacerbation of COPD with asthma Impression: pt feel better, wheezing is great improved. feel SOB on exertion. RT did SO2 study indicate RA at rest O2 sat 88%, O2 2liter/walk, O2 sat 93%. Pt require O2 supply for her to be d/c to home at this moment. continue steroid continue breathing treatment with RT pt is still wheezing, elevated Solu-metro from 40 mg to 80 tid continue RT treatment (2)pneumonia CTA indicate infection etiology in her lung Natalya felton (3)chronic calcified granulomatous lung disease chronic, stable. continue O2 supply as needed support (4) Hypoxemia Impression: follow up SO2 study today NC 3 liter 95% will wane off O2 NC on day time, closely monitor SO2 (5) Fever and chills Impression: resolved no fever at hospital course (6) HTN (hypertension) Impression: stable, resume home meds (7) CAD (coronary artery disease)
[2017-04-17] MEDS: HYDROcod/ACETAM 10 MG/325 MG TABLET PO PRN (18:18)
[2017-04-17] MEDS: ATORVASTATIN 40 MG TABLET PO SCH (22:13)
[2017-04-18] MEDS: methylPREDNISolone SUCCINATE 40 MG/ML VIAL IVP SCH ×2 (00:15→05:01)
[2017-04-18] MEDS: SODIUM CHLORIDE FLUSH 0.9% 10 ML SYRINGE IVP PRN ×2 (00:20→08:42)
[2017-04-18] MEDS: GABAPENTIN 400 MG CAPSULE PO SCH ×2 (05:01→13:28)
[2017-04-18] MEDS: SODIUM CHLORIDE FLUSH 0.9% 10 ML SYRINGE IVP SCH ×2 (05:01→13:28)
[2017-04-18] MEDS: BUDESONIDE 0.5 MG/2 ML NEB INH SCH (06:55)
[2017-04-18] MEDS: ALBUTEROL NEB 2.5 MG/3 ML INH SCH ×2 (06:55→12:28)
[2017-04-18] MEDS: POLYETHYLENE GLYCOL 3350 17 GM PACKET PO SCH (08:03)
[2017-04-18] MEDS ORDERED: SODIUM CHLORIDE 0.9% 100ML 100 ML IV ONE (08:22)
--- NOTE | 2017-04-18 08:27 | DISCHARGE SUMMARY ---
"Discharge Summary Admit Date: 04/13/17 Discharge Date: 04/18/17 Discharging Provider: Leena Doherty APRN Code Status: Attempt Resuscitation Condition at Discharge: Stable Discharge Disposition: 01 Home, Self Care Discharge Facility Name: home - DIAGNOSES Admission Diagnoses: 1. Acute on chronic COPD with exacerbation 2. Nicotine dependence, cigarettes, uncomplicated 3. Acute on chronic bronchitis with tobacco abuse, uncomplicated. 4. Home oxygen, night use only 5. Hypoxemia with COPD Discharge Diagnoses with Status of Each Condition: 1. Acute on chronic COPD with exacerbation and chronic bronchitis 2. Chronic nicotine dependence, cigarettes, uncomplicated 3. Acute on chronic bronchitis with prior granulomatous disease on CT with hypoxemia 4. Mixed hyperlipidemia 5. Secondary hypertension with tobacco abuse, uncomplicated 6. Chronic pulmonary edema - HPI History of Present Illness: This is a 56-year-old [place] female with a past medical history significant for COPD, current cigarette smoker, HTN, hyperlipidemia, CAD with cardiac stent , PVD, who present emergence department for evaluation of shortness of breath. Patient report she has been on difficult to breath for three days. She had cold , fever at 101 to 102 degree, chill and night sweating at home. patient report she recently traveled from [place] to visit her boyfriend in [facility] for 5 days. She report she currently smokes cigarette 3/4 pack per daily. She used O2 for the night at home. She also report cough with white and slight yellowish sputum. patient report she did not have sleep on last night because of shortness of breathing. Patient denies chest pain, headache, abdominal, nausea, vomiting, abdominal, urinary issue or vision changing. Patient was found hypotensive 91/49 and hypoxia 86% with 3 liter O2 in Emergence department. CTA of chest reveals she did not have PE, bronchitis with infectious etiology, prior granulomatous disease. Lab test reveal slight elevated WBC and creatinine. Pt is admitted for hypoxia secondary to COPD exacerbation. - CONSULTS | PROCEDURES Consultations: Respiratory therapy Procedures: CT of chest to rule out PE EKG - HOSPITAL COURSE Hospital Course: This is a 56-year-old female with a past medical history significant for COPD, current cigarette smoker, HTN, hyperlipidemia, CAD with cardiac stent , PVD, who presented to the ER for evaluation of shortness of breath and admitted to the medical surgical unit for acute COPD exacerbation with hypoxemia and acute on chronic bronchitis. Patient reported that she is on home oxygen but only at night and had been having a difficult time breathing for three days. She reported a fever at 101 to 102 degree, chills and night sweating at home but remained afebrile and asymptomatic inpatient. Patient was visiting from [place] to visit her boyfriend in [facility] for 5 days. She reported she smoked cigarettes, 3/4 pack per day and was started on a nicotine patch while inpatient. She was given a prescription to continue on patches as discharge for smoking cessation. Her oxygenation did improved but remained at less than 90% while on NC at 2 liters. It dropped to less than 88% on RA and with exertion. She reported a cough with white and slight yellowish sputum and was given guafenesin as needed. patient reported she was not sleeping well at night and she was given Ambien as needed. She worked with respiratory therapy to help improve oxygenation and Patient was found hypotensive 91/49 while in the ER and was given IVF NS for gentle hydration. Her CTA of chest was performed to rule out possible PE, which was negative but did show bronchitis with infectious etiology, and prior granulomatous disease. She had slightly elevated WBC and was started on antibiotics for possible pneumonia. blood cultures were negative. She continued on duoneb treatments and home medications for COPD. On the day of discharge she had a walking exertional pulse ox and found to have oxygenation level at 86% of room air and 90% while walking and on oxygen at 3 liters. It was determined that she required continuous oxygen and benefited from continuous oxygen NC at 3 liters and not only for night usage. [facility] was contacted for providing oxygen tank at discharge. Patient was concerned about flying home to [place] and needing oxygen when flying. This hospitalist spoke with [facility] provider, Dr Watkins for insurance approval for home oxygen needs and was approved for use at discharge continuously. Patient was instructed that she would need to make sure her airline would approve use of an oxygen source while flying home and prescription was given for use of oxygen while in flight home. Patient was safe to discharge home on prednisone, duoneb treatments and continuation of all home medications prior to admission. Antibiotics were stopped prior to discharge since patient remained afebrile and showed no signs of worsening illness. She was stable to go home and verbally understood insturctions received from nursing and hospitalist staff. Vitals signs for continuous oxygen need as follows: An ambulatory desaturation test was performed today prior to discharge: On room air at rest SpO2 88%, with 1 lpm oxygen SpO2 91%. On 1 lpm oxygen walking , SpO2 88% and @ 2-3 lpm oxygen walking SpO2 improved to 93%. - ALLERGIES Allergies/Adverse Reactions: Allergies Allergy/AdvReac Type Severity Reaction Status Date / Time ranitidine Allergy Edema Verified 04/13/17 07:39 - MEDICATIONS Home Medications: Ambulatory Orders Medication Instructions Recorded Confirmed Albuterol Sulfate [Proair Hfa 1 puffs INH Q6H 04/13/17 04/13/17 Inhaler] Aspirin Chewable [[place] 81 mg PO DAILY 04/13/17 04/13/17 Aspirin] Budesonide/Formoterol Fumarate 1 puffs INH BID 04/13/17 04/13/17 [Symbicort 160-4.5 Mcg Inhaler] Gabapentin 800 mg PO TID 04/13/17 04/13/17 Hydroxyzine HCl 50 mg PO Q6H PRN 04/13/17 04/13/17 Losartan Potassium 25 mg PO DAILY 04/13/17 04/13/17 Omeprazole 20 mg PO DAILY 04/13/17 04/13/17 Rosuvastatin Calcium [Crestor] 20 mg PO DAILY 04/13/17 04/13/17 HYDROcodone/ACET 10/325 [[place] 10 1 each PO Q4-6H PRN 04/14/17 04/14/17 mg/325 mg] Metoprolol Succinate [Toprol Xl] 50 mg PO DAILY 04/14/17 04/14/17 Ipratropium/Albuterol [Duoneb] 3 ml INH Q2HR PRN #20 neb 04/18/17 Nicotine 21 mg Patch [Nicoderm] 1 patch TOP DAILY #15 patch 04/18/17 guaiFENesin [Mucinex] 600 mg PO BID PRN #10 tablet 04/18/17 predniSONE [Deltasone] 20 mg PO DAILY #7 tablet 04/18/17 Home Medications Other | Comments: Active Medications Generic Name Dose Route Start Last Admin Trade Name Freq PRN Reason Stop Dose Admin Acetaminophen 650 mg 04/13/17 12:02 Tylenol PO Q4HR PRN Pain 1 to 4 Acetaminophen/Hydrocodone Bitart 1 tab 04/14/17 13:22 04/18/17 08:53 [place] 10 Mg/325 Mg PO 1 tab Q4H PRN Administration PAIN Albuterol 2.5 mg 04/17/17 07:00 04/18/17 12:28 INH 2.5 mg RTQID [facility] Administration Albuterol/Ipratropium 3 ml 04/15/17 12:20 04/16/17 18:28 Duoneb INH 3 ml Q2HR PRN Administration Wheezing Amitriptyline HCl 25 mg 04/13/17 13:00 04/18/17 08:32 Elavil PO 25 mg DAILY [facility] Administration Aspirin 81 mg 04/13/17 13:00 04/18/17 08:32 St Bob Aspirin PO 81 mg DAILY [facility] Administration Atorvastatin Calcium 40 mg 04/14/17 21:00 04/17/17 22:13 Lipitor PO 40 mg QPM [facility] Administration Azithromycin 500 mg 04/16/17 09:00 04/18/17 08:32 Zithromax PO 500 mg DAILY [facility] Administration Budesonide 0.5 mg 04/15/17 19:00 04/18/17 06:55 Pulmicort INH 0.5 mg RTBID [facility] Administration Calcium Carbonate/Glycine 500 mg 04/18/17 11:00 04/18/17 10:33 Tums PO 500 mg BID [facility] Administration Clonidine HCl 0.1 mg 04/16/17 11:39 04/17/17 00:14 Catapres PO 0.1 mg Q12H PRN Administration Hypertensive Emergency Enoxaparin Sodium 40 mg 04/14/17 09:00 04/18/17 08:34 Lovenox SUBQ 40 mg DAILY [facility] Administration Famotidine 20 mg 04/13/17 13:00 04/18/17 08:32 Pepcid PO 20 mg DAILY [facility] Administration Formoterol Fumarate 20 mcg 04/18/17 12:30 Perforomist INH RTBID [facility] Gabapentin 800 mg 04/13/17 14:00 04/18/17 13:28 Neurontin PO 800 mg TID [facility] Administration Guaifenesin 600 mg 04/13/17 16:58 04/16/17 22:39 Mucinex PO 600 mg BID PRN Administration Cough Hydroxyzine Pamoate 50 mg 04/13/17 12:29 Vistaril PO Q6H PRN ITCHING Losartan Potassium 25 mg 04/14/17 09:00 04/18/17 08:32 Cozaar PO 25 mg DAILY [facility] Administration Metoprolol Succinate 50 mg 04/15/17 09:00 04/18/17 08:33 Toprol Xl PO 50 mg DAILY [facility] Administration Nicotine 1 patch 04/14/17 17:00 04/18/17 08:33 Nicoderm TOP 1 patch DAILY [facility] Administration Ondansetron HCl 4 mg 04/13/17 12:02 Zofran Inj IVP Q6HR PRN Nausea / Vomiting Polyethylene Glycol 17 gm 04/14/17 09:00 04/18/17 08:03 Miralax PO Not Given DAILY [facility] Prednisone 60 mg 04/18/17 13:00 04/18/17 13:27 Deltasone PO 60 mg DAILYWM [facility] Administration Sodium Chloride 10 ml 04/13/17 12:02 04/18/17 08:42 Normal Saline Flush 0.9% IVP 20 ml PRN PRN Administration NEEDED PER PROVIDER ORDERS Sodium Chloride 10 ml 04/13/17 14:00 04/18/17 13:28 Normal Saline Flush 0.9% IVP Not Given Q8HR [facility] Sodium Chloride 2 sprays 04/14/17 14:07 04/14/17 15:08 Bradley RISA 1 spr Q4HR PRN Administration Nasal Congestion Zolpidem Tartrate 5 mg 04/13/17 12:02 Ambien PO QPM PRN Insomnia Albuterol Sulfate [Proair Hfa Inhaler] 1 puffs INH Q6H 04/13/17 Aspirin Chewable [[place] Aspirin] 81 mg PO DAILY 04/13/17 Budesonide/Formoterol Fumarate [Symbicort 160-4.5 Mcg Inhaler] 1 puffs INH BID 04/13/17 Gabapentin 800 mg PO TID 04/13/17 Hydroxyzine HCl 50 mg PO Q6H PRN 04/13/17 Losartan Potassium 25 mg PO DAILY 04/13/17 Omeprazole 20 mg PO DAILY 04/13/17 Rosuvastatin Calcium [Crestor] 20 mg PO DAILY 04/13/17 HYDROcodone/ACET 10/325 [[place] 10 mg/325 mg] 1 each PO Q4-6H PRN 04/14/17 Metoprolol Succinate [Toprol Xl] 50 mg PO DAILY 04/14/17 - PHYSICAL EXAM AT DISCHARGE General Appearance: positive: No acute distress, Alert Eyes Bilateral: positive: Normal inspection, PERRL, EOMI ENT: positive: ENT inspection nml, Pharynx nml, No signs of dehydration Neck: positive: Nml inspection, Thyroid nml, No JVD, Trachea midline Respiratory: positive: Chest non-tender, No respiratory distress, Other ( diminished but clear) Cardiovascular: positive: Regular rate & rhythm, No murmur, No gallop Peripheral Pulses: positive: 2+ Abdomen: positive: Non-tender, No organomegaly, Nml bowel sounds, No distention Back: positive: Nml inspection Skin: positive: Color nml, No rash, Warm, Dry Extremities: positive: Non-tender, Full ROM, Nml appearance, No pedal edema Neurologic/Psychiatric: positive: Oriented x3, CN's nml (2-12), Motor nml, Sensation nml, Mood/affect nml - LABS Result Diagrams: 04/17/17 05:01 04/17/17 05:01 Other Lab Results: Abnormal Lab Results 04/17/17 04/17/17 05:01 05:01 Neut # 9.2 10^3/uL H 10^3/uL (1.5-6.6) Lymph # 0.9 10^3/uL L 10^3/uL (1.5-3.5) Chloride 93 mmol/L L mmol/L (101-111) Carbon Dioxide 37 mmol/L H mmol/L (21-32) Glucose 137 mg/dL H mg/dL (70-100) - DIAGNOSTIC IMAGING Diagnostic Imaging Results: Prelim report reviewed, Final report reviewed - FOLLOW UP Follow Up: Patient was instructed to follow up with primary care provider when returning to [place]. She was instructed to call the airline to make sure oxygen would be allowed on the plane. She was given prescriptions for prednisione and breathing treatments. She was told to return to the ER if symptoms were worse or she had chest pain, shortness of breath, fever or chills. - TIME SPENT Time Spent in Discharge (Minutes): 45 (for education assessment and planning for discharge)"
--- NOTE | 2017-04-18 08:27 | Discharge Plan ---
Discharge Plan Disposition: Home, Self Care Condition: Stable Prescriptions: Ipratropium/Albuterol [Duoneb] 3 ml INH Q2HR PRN #20 neb PRN Reason: Wheezing predniSONE [Deltasone] 20 mg PO DAILY #7 tablet guaiFENesin [Mucinex] 600 mg PO BID PRN #10 tablet PRN Reason: Cough Nicotine 21 mg Patch [Nicoderm] 1 patch TOP DAILY #15 patch Diet: Cardiac Activity Restrictions: Activity as Tolerated Shower Restrictions: No Driving Restrictions: No Weight Bearing: Full Weight Instruction Topics: Tips Cardiovascular Quit Smoking, Disease Chronic Lung Quit Smoking Additional Instructions or Follow Up instructions: Please continue to take all home medication as prescribed. you have been given a steroid to take for an additional week and for inhalers. You are also to be on home oxygen for continuous use. You will receive a tank before leaving the hospital to take to [place] with you and on the plane. You will need to stop smoking when on oxygen and you have been given nicotine patches to help with smoking cessation. Continue on a heart healthy diet and drink plenty of water during the day Please followup with your primary care provider within one week of discharge. Please make sure to see them as soon as you get back to [place]. Please return to the ER if your symptoms worsen or you have chest pain or shortness of breath, fever or chills No Smoking: If you smoke, Please STOP! Call for help.
[2017-04-18] MEDS: AMITRIPTYLINE 25 MG TABLET PO SCH (08:32)
[2017-04-18] MEDS: LOSARTAN 50 MG TABLET PO SCH (08:32)
[2017-04-18] MEDS: ASPIRIN CHEW 81 MG TABLET PO SCH (08:32)
[2017-04-18] MEDS: AZITHROMYCIN 250 MG TABLET PO SCH (08:32)
[2017-04-18] MEDS: FAMOTIDINE 20 MG TABLET PO SCH (08:32)
[2017-04-18] MEDS: FUROSEMIDE 40 MG/4 ML VIAL IVP SCH (08:33)
[2017-04-18] MEDS: NICOTINE 21 MG PATCH TOP SCH (08:33)
[2017-04-18] MEDS: METOPROLOL SUCCINATE 50 MG TABLET PO SCH (08:33)
[2017-04-18] MEDS: cefTRIAXone 1 GM in SODIUM CHLORIDE 0.9% MINIBAG 100 ML IV SCH (08:34)
[2017-04-18] MEDS: ENOXAPARIN 40 MG/0.4 ML SYRINGE SUBQ SCH (08:34)
[2017-04-18] MEDS: HYDROcod/ACETAM 10 MG/325 MG TABLET PO PRN (08:53)
[2017-04-18] MEDS ORDERED: CALCIUM CARBONATE CHEW 500 MG TABLET PO SCH (11:00)
[2017-04-18] MEDS ORDERED: FORMOTEROL FUMARATE NEB 20 MCG/2 ML INH SCH (12:30)
[2017-04-18] MEDS ORDERED: predniSONE 20 MG TABLET PO SCH (13:00)
[2017-04-18] MEDS ORDERED: BUDESONIDE/FORMOTEROL 160/4.5 MCG INHALER INH SCH (13:00)
[2017-04-18 13:02] VITALS: BP 138/76
== END 2017-04-18 16:30 | disposition home or self-care (01) | DRG 191 ==
LOC: ED 07:28 → MS2 12:02
PROVIDERS: ADMIT Nurse Practitioner Gerontology; ATTEND Nurse Practitioner
DX: J44.0 Chronic obstructive pulmonary disease with (acute) lower respiratory infection (principal); J81.1 Chronic pulmonary edema; J06.9 Acute upper respiratory infection, unspecified; J20.9 Acute bronchitis, unspecified; E78.00 Pure hypercholesterolemia, unspecified; J44.1 Chronic obstructive pulmonary disease with (acute) exacerbation; R09.02 Hypoxemia; I95.9 Hypotension, unspecified; I10 Essential (primary) hypertension; I25.10 Atherosclerotic heart disease of native coronary artery without angina pectoris; F17.210 Nicotine dependence, cigarettes, uncomplicated; J84.10 Pulmonary fibrosis, unspecified; E78.4 Other hyperlipidemia; I15.9 Secondary hypertension, unspecified; Z99.81 Dependence on supplemental oxygen; I73.9 Peripheral vascular disease, unspecified; Z79.51 Long term (current) use of inhaled steroids; Z79.82 Long term (current) use of aspirin; Z79.899 Other long term (current) drug therapy; Z95.5 Presence of coronary angioplasty implant and graft
CPT/HCPCS: 36415; 71010; 71020; 71275; 80053; 83735; 85025; 85651; 86140; 93005; 94640; 94664; 94761; 96360; 96372; 99284

== ENCOUNTER 2017-04-20 06:28 | Outpatient (CLI) | payer MEDICARE | END 2017-04-20 06:29 | disposition critical access hospital (66) | LOC: EMS 06:28 | PROVIDERS: ATTEND Surgery | DX: R56.9 Unspecified convulsions (principal) | CPT/HCPCS: A0425; A0427 ==

== ENCOUNTER 2017-04-20 06:42 | Emergency (ER) | payer MEDICARE ==
[2017-04-20] MEDS ORDERED: IPRATROPIUM/ALBUTEROL 3 ML NEB INH STA (06:49)
[2017-04-20] MEDS ORDERED: IPRATROPIUM/ALBUTEROL 3 ML NEB INH ONE (06:56)
[2017-04-20] MEDS ORDERED: DEXAMETHASONE 10 MG/ML VIAL IVP STA (07:58)
[2017-04-20] MEDS ORDERED: SODIUM CHLORIDE 0.9% 1,000 ML IV ONE (07:58)
--- NOTE | 2017-04-20 08:01 | ED Physician Documentation ---
PD HPI SEIZURE - Stated complaint Stated Complaint: SZ - Chief complaint Chief Complaint: Neuro - History obtained from History obtained from: Patient, EMS - History of Present Illness Timing - onset: Enter time (537), Today Witnessed: Witnessed Number of seizures: Single Description of seizure activity: Generalized Injury during seizure: None Associated symptoms: Dyspnea History of seizures: First seizure Contributing factors: Other (recent illness with exacerbattion of COPD) Similar symptoms before: Has not had sx before Recently seen: Admitted (Discharged 04-18-17 with exacerbation of COPD.) - Additional information Additional information: 56-year-old female With a history of CAD and COPD and a recent admission to the hospital for exacerbation of COPD has had a seizure this morning. Of concern on her electrocardiogram or the development of new Q waves. She is visiting here from [place] and has been here about 2 weeks and is planning on returning in 3 days. She is sleeping on the couch and was not wearing her oxygen this morning when her daughter found her. The daughter indicates that her dog woke her up and she went down stairs to find her mother seizing on the couch and this lasted about 2 minutes. She has been confused since awakening. Review of Systems Unable to obtain: Confused PD PAST MEDICAL HISTORY - Past Medical History Past Medical History: Yes Cardiovascular: Hypertension, High cholesterol, Coronary artery disease, Peripheral Vascular Disease Respiratory: COPD Endocrine/Autoimmune: None - Past Surgical History Past Surgical History: Yes /[employer]: Hysterectomy Cardiovascular: Coronary stent - Present Medications Home Medications: Ambulatory Orders Medication Instructions Recorded Confirmed Albuterol Sulfate [Proair Hfa 1 puffs INH Q6H 04/13/17 04/13/17 Inhaler] Aspirin Chewable [St Bob 81 mg PO DAILY 04/13/17 04/13/17 Aspirin] Budesonide/Formoterol Fumarate 1 puffs INH BID 04/13/17 04/13/17 [Symbicort 160-4.5 Mcg Inhaler] Gabapentin 800 mg PO TID 04/13/17 04/13/17 Hydroxyzine HCl 50 mg PO Q6H PRN 04/13/17 04/13/17 Losartan Potassium 25 mg PO DAILY 04/13/17 04/13/17 Omeprazole 20 mg PO DAILY 04/13/17 04/13/17 Rosuvastatin Calcium [Crestor] 20 mg PO DAILY 09/07/17 09/07/17 HYDROcodone/ACET 10/325 [Pingree 10 1 each PO Q4-6H PRN 04/14/17 04/14/17 mg/325 mg] Metoprolol Succinate [Toprol Xl] 50 mg PO DAILY 04/14/17 04/14/17 Ipratropium/Albuterol [Duoneb] 3 ml INH Q2HR PRN #20 neb 04/18/17 Nicotine 21 mg Patch [Nicoderm] 1 patch TOP DAILY #15 patch 04/18/17 guaiFENesin [Mucinex] 600 mg PO BID PRN #10 tablet 04/18/17 predniSONE [Deltasone] 20 mg PO DAILY #7 tablet 04/18/17 - Allergies Allergies/Adverse Reactions: Allergies Allergy/AdvReac Type Severity Reaction Status Date / Time ranitidine Allergy Edema Verified 04/13/17 07:39 - Social History Does the pt smoke?: Yes Smoking Status: Current every day smoker Does the pt drink ETOH?: No Does the pt have substance abuse?: No - POLST Patient has POLST: No POLST Status: Full Code PD ED PE NORMAL - Vitals Vital signs reviewed: Yes (hypertensive) - General General: No acute distress, Well developed/nourished, Other (The paitent is disoriented and unable to provide history. more than one hour after seizure the patient remains post ictal. She has audible wheeze and complains of dyspnea. ) - HEENT HEENT: Atraumatic, PERRL, EOMI, Other (The left TM is inflamed in the attic the right much less so. ) - Neck Neck: Supple, no meningeal sign, No bony TTP - Cardiac Cardiac: RRR, No murmur - Respiratory Respiratory: Other (audbible wheeze tachypnea and scattered wheezes and rhonchi through all feilds. ) - Abdomen Abdomen: Soft, Non tender - Back Back: No CVA TTP, No spinal TTP - Derm Derm: Normal color, Warm and dry, No rash - Extremities Extremities: No deformity, No edema - Neuro Neuro: No motor deficit, No sensory deficit Results - Vitals Vitals: Vital Signs - 24 hr 04/20/17 04/20/17 04/20/17 06:43 07:01 07:06 Temperature 37.1 C Heart Rate 95 88 94 Respiratory 21 15 22 Rate Blood Pressure 144/106 H 131/89 H O2 Saturation 93 96 04/20/17 04/20/17 04/20/17 08:16 09:23 09:40 Temperature 36.9 C 36.0 C L Heart Rate 86 81 83 Respiratory 18 14 Rate Blood Pressure 131/89 H 138/100 H 141/95 H O2 Saturation 97 98 Oxygen O2 Source Room air Oxygen Flow Rate 2 - EKG (time done) 0734 Rate: Rate (enter#) (73) Rhythm: NSR Ischemia: Q waves (lateral new consistent with infarction) Compare to prior EKG: Changed from prior EKG (The q-waves in V4-6 are new from prior tracing 04-18-17) Computer interpretation: Agree with computer - Labs Labs: Laboratory Tests 04/20/17 04/20/17 04/20/17 07:15 07:15 07:15 WBC 15.4 H RBC 5.62 H Hgb 16.4 H Hct 48.5 H MCV 86.3 MCH 29.2 MCHC 33.8 RDW 13.3 Plt Count 260 MPV 10.0 Neut # 13.1 H Lymph # 1.5 Mason # 0.8 Eos # 0.0 Baso # 0.0 Absolute Nucleated RBC 0.01 Nucleated RBCs 0.1 Manual Slide Review Indicated Platelet Morphology RARE GIANT PLATELETS RBC Morph Micro Appear 1+ ANISOCYTOSIS Sodium 140 Potassium 2.6 L Chloride 90 L Carbon Dioxide 38 H Anion Gap 11.0 BUN 16 Creatinine 0.8 Estimated GFR (MDRD) 74 L Glucose 106 H Calcium 8.5 Total Bilirubin 1.0 AST 31 ALT 33 Alkaline Phosphatase 54 Troponin I 1.38 H* Total Protein 7.2 Albumin 3.6 Globulin 3.6 Albumin/Globulin Ratio 1.0 Lipase 41 - Rads (name of study) head without Radiology: Prelim report reviewed (Impression: No acute intracranial abnormality.), EMP read indepedently, See rad report 2 view chest Radiology: Prelim report reviewed (Impression: No focal consolidation.), EMP read indepedently, See rad report Procedures - IVC sono (time) 0755 Bedside IVC sono: IVC measures (cm) (1.30), IVC collapsed c insp (cm) (complete) , Dehydration PD MEDICAL DECISION MAKING - ED course Complexity details: reviewed old records, reviewed results, re-evaluated patient , considered differential, d/w patient ED course: 56-year-old female with history of CAD and COPD has had a recent exacerbation of COPD and has been placed on home oxygen. She was discharged from the hospital 2 days ago and this morning she was found on the couch having a seizure without her oxygen on. Here in the emergency department the patient is confused and postictal she does have continued improvement in her ability to recall events and on her electrocardiogram this morning she does have some new Q waves in the lateral leads. Her troponin is elevated at 1.38 and arrangements are made to transfer the patient to [facility] with Dr. Jones accepting. She is given 324 mg of aspirin orally and heparin drip is begun as well as IV metoprolol. She does have continued cough, She has inflammation in the attic on the left and she is administered dexamethasone here in the emergency department and a dose of Rocephin.Her potassium was low as well she is administered oral and IV potassium Departure - Departure Disposition: 02 Transfer Acute Care Hosp Clinical Impression: Seizure Acute myocardial infarction Qualifiers: Myocardial infarction ST status: non-ST elevation myocardial infarction Qualified Code(s): I21.4 - Non-ST elevation (NSTEMI) myocardial infarction Otitis media Qualifiers: Otitis media type: suppurative Chronicity: acute Laterality: left Recurrence: not specified as recurrent Spontaneous tympanic membrane rupture: without spontaneous rupture Qualified Code(s): H66.002 - Acute suppurative otitis media without spontaneous rupture of ear drum, left ear
[2017-04-20] MEDS ORDERED: DEXAMETHASONE 10 MG/ML VIAL ONE (08:17)
[2017-04-20 08:49] LABS: BASOPHILS % (AUTO) 0.1 %; EOSINOPHILS % (AUTO) 0.1 %; HCT - HEMATOCRIT 48.5 % (37.0-47.0); HGB - HEMOGLOBIN 16.4 g/dL (12.0-16.0); LYMPHOCYTES # (AUTO) 1.5 10^3/uL (1.5-3.5); LYMPHOCYTES % (AUTO) 9.5 %; MEAN CORPUSCULAR HEMOGLOBIN 29.2 pg (27.0-31.0); MEAN CORPUSCULAR HGB CONC 33.8 g/dL (32.0-36.0); MEAN CORPUSCULAR VOLUME 86.3 fL (81.0-99.0); MONOCYTES # (AUTO) 0.8 10^3/uL (0.0-1.0); MONOCYTES % (AUTO) 5.2 %; NEUTROPHILS # (AUTO) 13.1 10^3/uL (1.5-6.6); NEUTROPHILS % (AUTO) 85.1 %; NUCLEATED RED BLOOD CELLS AUTO 0.1 /100WBC; RED BLOOD COUNT 5.62 10^6/uL (4.20-5.40); RED CELL DISTRIBUTION WIDTH 13.3 % (12.0-15.0); UNCORRECTED WHITE BLOOD COUNT 15.4 x10^3/uL; WHITE BLOOD COUNT 15.4 x10^3/uL (4.8-10.8)
--- NOTE | 2017-04-20 09:06 | CT Preliminary Report ---
Exam: CT Head W/O IMPRESSION: No acute intracranial abnormality. [facility] SITE ID: [id number]
--- NOTE | 2017-04-20 09:07 | XRAY Preliminary Report ---
Exam: XR Chest 2 View PA/LAT IMPRESSION: No focal consolidation. [id number]
--- NOTE | 2017-04-20 09:08 | CT Report ---
EXAM: CT HEAD EXAM DATE: 04/20/2017 08:41 AM. CLINICAL HISTORY: Seizure and confusion. COMPARISON: None. TECHNIQUE: Multiaxial CT images were obtained from the foramen magnum to the vertex. IV contrast: Non e. Reformats: Coronal. In accordance with CT protocol optimization, one or more of the following dose reduction techniques w ere utilized for this exam: automated exposure control, adjustment of mA and/or KV based on patient s ize, or use of iterative reconstructive technique. FINDINGS: Parenchyma: No intraparenchymal hemorrhage. No evidence of mass, midline shift, or CT findings of inf arction. Morton-white differentiation is distinct. Extraaxial Spaces: Normal for age. No subdural or epidural collections identified. Ventricles: Normal in size and position. Sinuses: Imaged paranasal sinuses, orbits, and mastoids show no significant abnormality. Bones: No evidence of fracture or calvarial defect. Other: None. IMPRESSION: No acute intracranial abnormality. [facility] Referring Provider Line: [phone] SITE ID: [id number]
--- NOTE | 2017-04-20 09:10 | XRAY Report ---
EXAM: CHEST RADIOGRAPHY EXAM DATE: 04/20/2017 08:49 AM. CLINICAL HISTORY: Dyspnea seizure confusion. COMPARISON: None. TECHNIQUE: 2 views. FINDINGS: Lungs/Pleura: No focal opacities evident. No pleural effusion. No pneumothorax. Normal volumes. Mediastinum: Heart and mediastinal contours are unremarkable. Other: None. IMPRESSION: No focal consolidation. [facility] Referring Provider Line: [phone] SITE ID: [id number]
[2017-04-20 09:11] LABS: CALCIUM 8.5 mg/dL (8.5-10.3); CREATININE 0.8 mg/dL (0.4-1.0); POTASSIUM 2.6 mmol/L (3.5-5.0); TOTAL PROTEIN 7.2 g/dL (6.7-8.2)
[2017-04-20 09:16] LABS: PLATELET MORPHOLOGY RARE GIANT PLATELETS (NORMAL)
[2017-04-20] MEDS ORDERED: ASPIRIN CHEW 81 MG TABLET PO STA (09:23)
[2017-04-20] MEDS ORDERED: HEPARIN 5,000 UNIT/ML VIAL IVP STA (09:23)
[2017-04-20] MEDS ORDERED: HEPARIN 25,000 UNITS/500 ML 500 ML IV STA (09:23)
[2017-04-20] MEDS ORDERED: METOPROLOL 5 MG/5 ML VIAL IVP STA (09:25)
[2017-04-20] MEDS ORDERED: ASPIRIN CHEW 81 MG TABLET ONE (09:36)
[2017-04-20] MEDS ORDERED: METOPROLOL 5 MG/5 ML VIAL IVP ONE (09:36)
[2017-04-20] MEDS ORDERED: HEPARIN 25,000 UNITS/500 ML 500 ML IV ONE (09:36)
[2017-04-20] MEDS ORDERED: HEPARIN 5,000 UNIT/ML VIAL ONE (09:36)
[2017-04-20] MEDS ORDERED: SODIUM CHLORIDE FLUSH 0.9% 10 ML SYRINGE IVP ONE (09:37)
[2017-04-20] MEDS ORDERED: POTASSIUM CHLOR 10 MEQ/100 ML 100 ML IV ONE ×2 (09:51→10:04)
[2017-04-20] MEDS ORDERED: POTASSIUM BICARB 25 MEQ TABLET PO STA (09:51)
[2017-04-20] MEDS ORDERED: cefTRIAXone 1 GM in SODIUM CHLORIDE 0.9% MINIBAG 100 ML IV STA (09:52)
[2017-04-20] MEDS ORDERED: ONDANSETRON 4 MG/2 ML VIAL IVP STA (09:58)
[2017-04-20] MEDS ORDERED: ONDANSETRON 4 MG/2 ML VIAL ONE (10:04)
[2017-04-20] MEDS ORDERED: cefTRIAXone 1 GM VIAL ONE (10:04)
[2017-04-20] MEDS ORDERED: POTASSIUM BICARB 25 MEQ TABLET PO ONE (10:04)
[2017-04-20 10:50] VITALS: BP 144/93
[2017-04-20] MEDS ORDERED: cefTRIAXone 2 GM VIAL ONE (13:49)
== END 2017-04-20 10:49 | disposition short-term general hospital (02) ==
LOC: EDUNIT# → ED 06:42
DX: R56.9 Unspecified convulsions (principal); I21.4 Non-ST elevation (NSTEMI) myocardial infarction; H66.002 Acute suppurative otitis media without spontaneous rupture of ear drum, left ear; I25.10 Atherosclerotic heart disease of native coronary artery without angina pectoris; I10 Essential (primary) hypertension; I73.9 Peripheral vascular disease, unspecified; Z95.5 Presence of coronary angioplasty implant and graft; Z79.82 Long term (current) use of aspirin
CPT/HCPCS: 70450; 71020; 80053; 83690; 84484; 85025; 87040; 93005; 94640; 96361; 96365; 96367; 96375; 96376; 99285; A9270; J7620

== ENCOUNTER 2017-04-20 10:56 | Outpatient (CLI) | payer MEDICARE | END 2017-04-20 10:57 | disposition short-term general hospital (02) | LOC: EMS 10:56 | PROVIDERS: ATTEND Surgery | DX: I21.4 Non-ST elevation (NSTEMI) myocardial infarction (principal); R56.9 Unspecified convulsions | CPT/HCPCS: A0425; A0426 ==